=== PATIENT | male | born 1980 | race African-American/Black ===

== ENCOUNTER 2022-06-28 19:11 | Inpatient (IN) | payer OTHER, SELFPAY ==
[2022-06-28] VITALS (9 sets, daily range): BP systolic 120–139; BP diastolic 86–94; PULSE 107–121; RESP 18–36; TEMP 37.9–39.2; O2SAT 97–98
--- NOTE | ~2022-06-28 | XR_ITS ---
Portable chest x-ray Comparison: None Clinical History: Chest pain Findings: There is linear bibasilar scarring or atelectasis. Lungs are otherwise clear. Cardiomedia stinal silhouette is unremarkable. Bones and soft tissues are unremarkable. Impression: Linear bibasilar scarring or atelectasis, otherwise clear lungs. Reviewed, dictated and finalized at [facility]. Impression: Linear bibasilar scarring or atelectasis, otherwise clear lungs.
--- NOTE | ~2022-06-28 | CT_ITS ---
CT of the Abdomen and Pelvis: Indication: Peritonitis Technique: 2.5 mm axial scans were obtained through the abdomen and pelvis following intravenous adm inistration of 100 cc of Omnipaque 350. Dose reduction technique was used on this scan by utilizing a utomated exposure control and iterative reconstruction technique. The dose-length product (DLP) was 5 34.64 mGy-cm. Findings: Scans through the lung bases demonstrate bibasilar linear atelectasis or scarring. There i s a 5 mm lung nodules extreme left lung base (see series 4 image 38). There are innumerable small cysts or biliary hamartomas. The spleen, pancreas, gallbladder, adrenals and kidneys are within normal limits. No evidence of aortic aneurysm. No lymphadenopathy. No bowel obstruction or bowel wall thickening. There is no evidence to suggest acute appendicitis. Images through the pelvis were performed. Urinary bladder unremarkable. Prostate gland and seminal ve sicles are unremarkable. No ascites. Impression: No acute abnormality. 5 mm left basilar pulmonary nodule. According to Fleischner Society criteria, for a low-risk patient no further follow-up required. For a high-risk patient consider 12 month follow-up CT. Innumerable small hepatic cysts or biliary hamartomas. Reviewed, dictated and finalized at location M. Impression: No acute abnormality. 5 mm left basilar pulmonary nodule. According to Fleischner Society criteria, f or a low-risk patient no further follow-up required. For a high-risk patient co nsider 12 month follow-up CT. Innumerable small hepatic cysts or biliary hamartomas.
--- NOTE | ~2022-06-28 | US_ITS ---
EXAMINATION: US abdomen limited DATE: 06/29/2022 17:01 INDICATION: +MURPHYS TECHNIQUE: Multiple grayscale and Doppler ultrasound images of limited portions of the abdomen were o btained. COMPARISON: CT abdomen pelvis 06/28/2022. FINDINGS: Pancreas not visualized. The liver is normal with normal echogenicity and echotexture. Mult iple simple liver cysts. No surface nodularity. Normal hepatopetal flow in the main portal vein. The gallbladder is normal size, with wall thickening to 4 mm, but no pericholecystic fluid or stones. The common bile duct measures mm. There was no sonographic Luis sign. IMPRESSION: Gallbladder wall thickening, a nonspecific finding. Pancreas not visualized. Otherwise unremarkable l imited abdominal ultrasound findings. Reviewed, dictated and finalized at location K. IMPRESSION: Gallbladder wall thickening, a nonspecific finding. Pancreas not visualized. Ot herwise unremarkable limited abdominal ultrasound findings.
--- NOTE | ~2022-06-28 | XR_ITS ---
EXAMINATION: XR lumbar puncture diagnostic DATE: 06/30/2022 13:37 INDICATION: Fever, headache and nuchal rigidity TECHNIQUE: The procedure including the risks and benefits was discussed with the patient. Risks discu ssed included spinal headache, cerebrospinal fluid leak, bleeding, and infection. The patient underst ood the risks and agreed to proceed. A timeout was performed to verify the patient's name, date of , and procedure to be performed. The skin overlying the L3-L4 level was prepped and draped in usual sterile fashion. Subcutaneous 1% lidocaine was used for local anesthesia. A 22 gauge spinal n eedle was advanced under fluoroscopic guidance. The needle was removed and the entry site was cleaned and dressed. There were no immediate complications. A total of 1 fluoroscopic image(s) were obtaine d. The amount of fluoroscopy time used during this procedure was 0.1 minutes. Total DAP was 1.014 Gyc m^2. There were no immediate competitions. Patient was transferred to CT for a previously ordered hea d CT was to be subsequently returned to the floor. FINDINGS: Real-time fluoroscopy demonstrates the needle at the L3-L4 level. Opening pressure was 18.5 cm water. (Normal range is variably defined as 6-20 cm water and up to 25 cm water in obese patients . Pressure >25 cm water is one of the modified Dandy criteria for idiopathic intracranial hypertensio n). 13 mL of clear, colorless fluid was collected in 4 tubes. IMPRESSION: 1. Successful fluoro-guided lumbar puncture. Reviewed, dictated and finalized at location A.
--- NOTE | ~2022-06-28 | MR_ITS ---
EXAMINATION: MR lumbar spine wo/w con DATE: 06/29/2022 13:00 INDICATION: Back pain and fever TECHNIQUE: Magnetic resonance imaging (MRI) of the lumbar spine was performed without and with 17 mL Multihance intravenous contrast. Sequences included sagittal T2-weighted FSE, sagittal T2-weighted FS FSE, and sagittal and axial T1-weighted FSE. Postcontrast sequences included axial T2-weighted FSE, sagittal T1-weighted FSE, and axial and sagittal T1-weighted FS FSE. COMPARISON: None FINDINGS: Alignment is normal. Chronic appearing likely physiologic mild anterior wedging at T12 and minimal at L1. There is mild disc height loss with mild fibrovascular degenerative endplate changes at T11-T12. Additional mild fibrovascular degenerative endplate change on the left anterior aspect of the inferi or endplate of L5. Marrow signal is otherwise normal. Lumbar disc heights are normal. The conus medul harley terminates at L1-L2. There is normal signal in the caudal spinal cord. No abnormally enhancing lesions identified. Paravertebral soft tissues are unremarkable. The following disc levels are specif ically discussed: L1-L2: The disc does not extend beyond the endplate margin. There is minimal bilateral facet joint os teoarthritis. There is no neural foraminal stenosis. There is no central canal stenosis. L2-L3: The disc does not extend beyond the endplate margin. There is mild bilateral facet joint osteo arthritis. There is no neural foraminal stenosis. There is no central canal stenosis. L3-L4: The disc does not extend beyond the endplate margin. There is mild right and minimal left face t joint osteoarthritis. There is minimal bilateral neural foraminal stenosis. There is no central can al stenosis. L4-L5: The disc does not extend beyond the endplate margin. There is mild bilateral facet joint osteo arthritis. There is mild bilateral neural foraminal stenosis. There is no central canal stenosis. L5-S1: Disc is mildly bulging. There is mild bilateral facet joint osteoarthritis. Bilateral pars int erarticularis defects. There is mild left and minimal right neural foraminal stenosis. There is no ce ntral canal stenosis. IMPRESSION: 1. Minimal lumbar spondylosis with bilateral L5 pars interarticularis defects. Reviewed, dictated and finalized at location A.
--- NOTE | ~2022-06-28 | MR_ITS ---
EXAMINATION: MR cervical spine wo/w con DATE: 06/29/2022 13:00 INDICATION: Fever and back pain TECHNIQUE: Magnetic resonance imaging (MRI) of the cervical spine was performed without and with 17 m L Multihance intravenous contrast. Sequences included sagittal T2-weighted FSE, sagittal T2-weighted FS FSE, sagittal T1-weighted FSE, axial T2-weighted FSE, and axial T1-weighted SE. Postcontrast imagi ng were obtained for separate pre and postcontrast lumbar spine MRI which will be dictated separately . Patient however terminated the study prior to obtaining the planned postcontrast imaging of the cer vical thoracic spine. COMPARISON: None FINDINGS: Imaging of the normal cervical lordosis. No spondylolisthesis. Vertebral body heights are normal. Mo derate disc height loss at C5-C6 with associated mild fibrovascular degenerative endplate changes. Ma rrow signal is otherwise normal. Cord signal intensity is normal. The soft tissues are unremarkable. The following disc levels are specifically discussed: C2-C3: The disc does not extend beyond the endplate margin. There is no uncovertebral joint osteoarth ritis. There is mild right and mild to moderate left facet joint osteoarthritis. There is no neural f oraminal stenosis. There is no central canal stenosis. C3-C4: The disc does not extend beyond the endplate margin. There is mild right uncovertebral joint o steoarthritis. There is mild right and mild to moderate left facet joint osteoarthritis. There is no neural foraminal stenosis. There is no central canal stenosis. C4-C5: Small left paracentral disc protrusion. There is mild bilateral uncovertebral joint osteoarthr itis. There is mild bilateral facet joint osteoarthritis. There is mild bilateral neural foraminal st enosis. There is minimal central canal stenosis. C5-C6: Disc is bulging. There is moderate bilateral uncovertebral joint osteoarthritis. There is mild bilateral facet joint osteoarthritis. There is mild bilateral, left greater than right neural forami nal stenosis. There is mild central canal stenosis. C6-C7: The disc does not extend beyond the endplate margin. There is mild bilateral uncovertebral rosy nt osteoarthritis. There is mild bilateral facet joint osteoarthritis. There is no neural foraminal s tenosis. There is no central canal stenosis. C7-T1: The disc does not extend beyond the endplate margin. There is mild left uncovertebral joint os teoarthritis. There is mild bilateral facet joint osteoarthritis. There is mild left neural foraminal stenosis. There is no central canal stenosis. IMPRESSION: 1. Cervical spondylosis moderate at C5-C6 and otherwise mild. Reviewed, dictated and finalized at location A.
--- NOTE | ~2022-06-28 | XR_ITS ---
EXAMINATION: XR chest 2V DATE: 07/01/2022 14:58 INDICATION: Fever TECHNIQUE: PA and lateral views of the chest were obtained. COMPARISON: Chest radiograph dated 06/28/2022 FINDINGS: Persistent linear bandlike opacities in the bilateral lower lung zones, left greater than right and f avor discoid atelectasis or pneumonia. No other airspace opacities, pulmonary edema, pleural effusion or pneumothorax. The cardiomediastinal silhouette is normal. Mild thoracic and lumbar spondylosis wi th chronic mild anterior wedging of a few vertebral bodies at the thoracolumbar junction. IMPRESSION: 1. No significant change in linear bandlike opacities at the bilateral lower lung zones and favor dis coid atelectasis over pneumonia. Reviewed, dictated and finalized at location A. IMPRESSION: 1. No significant change in linear bandlike opacities at the bilateral lower rosy ng zones and favor discoid atelectasis over pneumonia.
--- NOTE | ~2022-06-28 | MR_ITS ---
EXAMINATION: MR thoracic spine wo/w con DATE: 06/29/2022 13:00 INDICATION: Back pain and fever TECHNIQUE: Magnetic resonance imaging (MRI) of the thoracic spine was performed without and with 17 m L Multihance intravenous contrast. Sagittal localizer T1-weighted FSE of the cervicothoracic spine wa s obtained. Sequences included sagittal T2-weighted FSE, sagittal T2-weighted FS FSE, sagittal T1-sarah ghted FSE and axial T1-weighted SE. Postcontrast imaging was obtained for separate pre and postcontra st lumbar spine MRI which will be dictated separately. Patient however terminated the study prior to obtaining the planned postcontrast imaging of the cervical thoracic spine. COMPARISON: None FINDINGS: Alignment is normal. Chronic appearing mild likely physiologic anterior wedging atT11 and T12, minima l atL1. There are Schmorl's nodes along several of the endplates in the lower thoracic spine. Mild di sc height loss [id number] with mild anterior fibrovascular degenerative endplate changes. Marrow signa l is otherwise normal. Additional mild disc height loss at T3-T4 through T6-T7. Mild disc bulge at T1 1-T12 with minimal central canal stenosis. Remaining discs do not extend beyond the endplate margins with no other central canal stenosis. There is normal spinal cord signal. Multilevel mild thoracic fa cet osteoarthritis. No neural foraminal stenosis. Paravertebral soft tissues are unremarkable. IMPRESSION: 1. Mild thoracic spondylosis. Reviewed, dictated and finalized at location A.
--- NOTE | ~2022-06-28 | CT_ITS ---
EXAMINATION: CT brain wo con DATE: 06/30/2022 13:36 INDICATION: Headache TECHNIQUE: Computed tomography (CT) of the head was performed without intravenous contrast. The mA wa s adjusted according to patient size. Iterative reconstruction technique was employed. Exam dose: 60 5.33 mGy-cm total exam DLP. COMPARISON: None FINDINGS: No intracranial mass lesion or hemorrhage or cerebrovascular accident. No midline shift or mass effect. Normal ventricular size. Normal naik-white matter differentiation. No subdural or epidur al hematoma. No fracture or bone destruction of the cranial vault. Probable old blowout fracture of the medial wall of the left orbit. Included paranasal sinuses and mastoid air cells are unremarkable. IMPRESSION: Old blowout fracture medial wall left orbit No significant intracranial abnormality Reviewed, dictated and finalized at Location [facility]. Reviewed, dictated and finalized at location B.
--- NOTE | ~2022-06-28 | CT_ITS ---
EXAMINATION: CT abdomen pelvis w con INDICATION: Elevated liver function tests TECHNIQUE: Computed tomographic images of the abdomen and pelvis were obtained after the administrati on of 100 cc of Omnipaque 350 intravenous contrast. The dose-length product (DLP) was 382.92 mGy-cm. Automated exposure control and iterative reconstruction technique were employed. COMPARISON: 06/28/2022 FINDINGS: There are small pleural effusions. The heart size is normal. There is mild dependent atelec tasis of the lungs. There are innumerable cysts versus biliary hamartomas of the liver which measure up to 1.3 cm in the right hepatic lobe. The spleen, pancreas, gallbladder, and adrenal glands are nor mal. Cysts of the kidneys measure up to 6 mm on the left. No pathologically enlarged abdominal or pel sj lymph nodes are identified. No free intraperitoneal gas or evidence of bowel obstruction. There a re marked distention of the urinary bladder. Liquid stool is present in the colon to the level of the rectum. There is mild lumbar spondylosis. IMPRESSION: 1. No CT correlate for the patient's symptoms. 2. Distended urinary bladder. Reviewed, dictated and finalized at location B.
--- NOTE | 2022-06-28 23:12 | ECG_ITS ---
Measurements Intervals Means Rate: 109 P: 28 LA: 144 QRS: 26 QRSD: 88 T: -2 QT: 324 QTc: 436 Interpretive Statements SINUS TACHYCARDIA BORDERLINE T WAVE ABNORMALITY- INFERIOR LEADS ABNORMAL ECG NO PREVIOUS ECG AVAILABLE FOR COMPARISON Electronically Signed On 06-29-2022 6:48:19 CDT by Griffin Hernandez D.O.
[2022-06-28] MEDS: SODIUM CHLORIDE 0.9% IV 3,000 ML 999 ML IV CONT (23:20)
[2022-06-28] MEDS: HYDROmorphone HCL INJ (*CRX) 1 MG/ML SYR IV PUSH (23:27)
[2022-06-28 23:34] LABS: Basophils Percent Auto 0.2 % (0.2-1.2); Hemoglobin 13.8 g/dL (14.0-18.0); Immature Granulocyte Absolute 0.05 K/mm3 (0.00-0.031); Immature Granulocyte Percent A 0.4 % (0-0.5); Lymphocytes Absolute Auto 0.72 K/mm3 (0.9-3.2); Lymphocytes Percent Auto 5.5 % (18.3-44.2); Mean Corpuscular HGB Conc 32.9 g/dl (32-36); Mean Corpuscular Volume 85.2 fl (80-100); Mean Platelet Volume 9.1 fl (7.4-10.4); Monocytes Absolute Auto 1.7 K/mm3 (0.1-0.6); Monocytes Percent Auto 13.2 % (2.6-8.5); Neutrophils Absolute Auto 10.6 K/mm3 (1.3-6.7); Neutrophils Percent Auto 80.7 % (45.5-73.1); Platelet Count Result 293 k/mm3 (150-375); Red Blood Count 4.93 M/mm3 (4.6-6.20); Red Cell Distribution Width 13.2 % (11.5-14.5); White Blood Count 13.1 K/mm3 (4.5-10.0)
[2022-06-28 23:45] LABS: Alanine Aminotransferase 30 U/L (6-50); Albumin Level 4.1 g/dL (3.5-5.1); Alkaline Phosphatase 99 U/L (38-126); Anion Gap 8 mmol/L (8-16); Aspartate Amino Transferase 23 U/L (17-59); Bilirubin,Total 0.8 mg/dL (0.2-1.3); Blood Urea Nitrogen 20 mg/dL (9-20); Calcium 8.7 mg/dL (8.4-10.2); Carbon Dioxide 30 mmol/L (22-30); Chloride 95 mmol/L (98-107); Estimated CRCL calculation 79 ml/min; Estimated Glomerular Filt Rate > 60; Glucose 139 mg/dL (65-110); INR 1.3; Lactic Acid Reflex 1.6 mmol/L (0.7-2.0); Lipase 29 U/L (23-300); Magnesium 2.5 mg/dL (1.6-2.3); Prothrombin Time 15.7 Seconds (11.1-14.7); Sodium 133 mmol/L (137-145)
[2022-06-28 23:46] LABS: Partial Thromboplastin Time 26.9 SECONDS (22.3-36.8)
--- NOTE | 2022-06-28 23:47 | ED.GENADULT ---
HPI - General Adult General Chief complaint: Unspecified Stated complaint: pain all over Time Seen by Provider: 06/28/22 22:54 History of Present Illness HPI narrative: this is a 41-year-old male presenting ED with chief complaint of abdominal and back pain. Patient says that starting 4 days ago he had abdominal pain. He has seen an outside hospital and was discharged with symptomatic treatment. Since then it has gotten progressively worse. The pain started in the epigastric area of his stomach, stabbing pain that is constant and 10/10 in intensity. Says it is now radiating to his back. Patient has not had a bowel movement for 5 days. He is still passing gas. He is having nausea and vomiting. No history of small-bowel obstruction, hernias or surgery on his abdomen. He does take Aleve every several days for pain. he denies IV drug abuse or immunocompromised. Related Data Allergies Allergy/AdvReac Type Severity Reaction Status Date / Time No Known Allergies Allergy Verified 06/28/22 23:17 Exam Narrative: APPEARANCE: patient appears to be in severe pain Head: atraumatic. EYES: EOMI, NOSE: Atraumatic Back: midline lumbar tenderness RESPIRATORY: No increased rate of breathing clear to auscultation CARDIOVASCULAR: tachycardic ABDOMINAL: abdomen is rigid with diffuse tenderness and involuntary guarding MUSCULOSKELETAl: No obvious deformities NEURO: Alert. Moving 4/4 extremities SKIN:: warm to touch PSYCHIATRIC: severe pain Course Vital Signs Vital signs: Vital Signs Temperature 100.2 F H 06/28/22 19:20 Pulse Rate 120 H 06/28/22 19:20 Respiratory Rate 18 06/28/22 19:20 Blood Pressure 136/92 H 06/28/22 19:20 Pulse Oximetry 98 06/28/22 19:20 Temperature 102.6 F H 06/28/22 22:22 Pulse Rate 121 H 06/28/22 22:22 Respiratory Rate 20 06/28/22 22:22 Blood Pressure 120/91 H 06/28/22 22:22 Pulse Oximetry 97 06/28/22 22:22 Procedures EJ/Peripheral Line Arm L: Skin Cleansed in Sterile Fashion: Yes Ultrasound Guided: No Size (gauge): 18 IV Secured and Dressing Applied: Yes Patient Tolerated Procedure: well Additional Comments: Peripheral IV started by emergently Arm R: Skin Cleansed in Sterile Fashion: Yes Size (gauge): 18 IV Secured and Dressing Applied: Yes Patient Tolerated Procedure: well Additional Comments: peripheral IV started by MD emergently Medical Decision Making MDM Narrative Medical decision making narrative: -Presentation: this is a 41-year-old male presenting to ED with abdominal pain and back pain. Patient appears unwell, febrile and tachycardic. abdominal guarding. Fluid resuscitation was started. Patient was started on pip/tazo. POC RUQ US showed a normal GB. Emergent CT abdomen pelvis was ordered. -DDX includes but is not limited to: small-bowel obstruction, cholecystitis, perforated viscus, appendicitis, diskitis/osteomyelitis -Co-morbidities complicating care: none -Social determinants of health: patient works for a [employer]. Lives with his brother Graham -External Chart Review: none -Hx from independent Sources: Graham at bedside -Discussion of Management/Consultants: Mahamed-hospitalist -Independent interpretation of studies: White blood cell count is 13.1. Metabolic panel shows mild dehydration. Lactic is normal. Viral swabs are negative. Chest x-ray shows no acute cardiopulmonary process. Independent EKG interpretation: Rhythm [sinus], Rate [109], [place] -[normal], [place] -[normal], QRS [narrow], QTC [normal], T waves -[negative for concerning inversions], ST Segments - [Negative for concerning elevations] Final interpretations: [Normal Sinus Rhythm] CT abdomen pelvis was interpreted by [facility] showed diffuse hepatic cysts and subcentimeter size renal cysts but no obstruction perforation/appendicitis/cholecystitis. The patient's ot
[2022-06-28] MEDS: ONDANSETRON INJ 4 MG/2 ML VIAL 8 MG IV PUSH (23:50)
[2022-06-29] VITALS (63 sets, daily range): BP systolic 107–145; BP diastolic 77–110; PULSE 92–105; RESP 14–27; TEMP 37.2–37.8; O2SAT 96–99; BMI 29.1
[2022-06-29] MEDS: PIPERACILLN/TAZ 3.375GM/NS50ML 3.375 GM/50 ML BAG IVPB ×3 (00:13→17:33)
[2022-06-29 01:00] LABS: Influenza A QL RT-PCR Negative (Negative); Influenza B QL RT-PCR Negative (Negative); SARS-CoV-2 RNA PCR Negative
[2022-06-29 02:55] LABS: CRP 6.8 mg/dL (<1.0)
[2022-06-29 03:25] LABS: Erythrocyte Sedimentation Rate 17 mm/hr (0-20)
[2022-06-29] MEDS: HYDROmorphone HCL INJ (*CRX) 1 MG/ML SYR 0.5 MG IV PUSH ×4 (03:38→21:44)
[2022-06-29] MEDS: LACTATED RINGERS 1,000 ML 125 ML IV CONT ×3 (04:24→21:43)
[2022-06-29 05:43] LABS: Procalcitonin 0.7 ng/mL
[2022-06-29] MEDS: FAMOTIDINE 20 MG/2 ML VIAL IV PUSH ×2 (07:48→21:46)
[2022-06-29] MEDS: PANTOPRAZOLE SODIUM IV 40 MG VIAL IV PUSH (09:28)
[2022-06-29 10:53] LABS: Basophils Percent Auto 0.3 % (0.2-1.2); Eosinophils Percent Auto 0.2 % (0-4.4); Hematocrit 37.4 % (42.0-52.0); Immature Granulocyte Absolute 0.04 K/mm3 (0.00-0.031); Immature Granulocyte Percent A 0.3 % (0-0.5); Lymphocytes Absolute Auto 0.77 K/mm3 (0.9-3.2); Lymphocytes Percent Auto 6.4 % (18.3-44.2); Mean Corpuscular HGB Conc 32.1 g/dl (32-36); Mean Corpuscular Volume 87.4 fl (80-100); Mean Platelet Volume 8.9 fl (7.4-10.4); Monocytes Absolute Auto 1.4 K/mm3 (0.1-0.6); Monocytes Percent Auto 11.6 % (2.6-8.5); Neutrophils Absolute Auto 9.8 K/mm3 (1.3-6.7); Neutrophils Percent Auto 81.2 % (45.5-73.1); Platelet Count Result 242 k/mm3 (150-375); Red Blood Count 4.28 M/mm3 (4.6-6.20); Red Cell Distribution Width 13.4 % (11.5-14.5); White Blood Count 12.1 K/mm3 (4.5-10.0)
[2022-06-29 10:59] LABS: Chloride 101 mmol/L (98-107)
[2022-06-29 11:06] LABS: Alanine Aminotransferase 24 U/L (6-50); Albumin Level 3.3 g/dL (3.5-5.1); Alkaline Phosphatase 76 U/L (38-126); Anion Gap 4 mmol/L (8-16); Aspartate Amino Transferase 19 U/L (17-59); Bilirubin,Total 0.9 mg/dL (0.2-1.3); Blood Urea Nitrogen 16 mg/dL (9-20); Calcium 7.6 mg/dL (8.4-10.2); Carbon Dioxide 28 mmol/L (22-30); Estimated CRCL calculation 110 ml/min; Estimated Glomerular Filt Rate > 60; Glucose 128 mg/dL (65-110); Potassium 3.9 mmol/L (3.4-5.0); Sodium 133 mmol/L (137-145)
--- NOTE | 2022-06-29 11:51 | PC.NURSE ---
Pt off floor to MRI - will be admitted to room Report called to Bere on . Will send belongings to floor (jejuan antonio, snkwamekerrashel, gatjacky bottle, sweatshirt, iphone).
--- NOTE | 2022-06-29 13:28 | ADMGEN ---
This patient, Henrique Ayala, was admitted to 2 Medical Room 260-. Patient/family oriented to hospital policies and general routines including ID bracelet, bed and alarms, visiting hours, pain management, procedures, bathroom and other care routines, personal items, smoking policy, room service/diet, and visiting hours. Information on how to activate the Rapid Response Team has been discussed. Patient/Family are encouraged to report perceived risks to care and to ask questions if they do not understand what they are told or what they should do.
--- NOTE | 2022-06-29 16:17 | PM.IMHP ---
H&P: HPI History of Present Illness Date/Time: 06/29/22 16:17 Chief Complaint: This is a 41-year-old male with no a significant past medical history and not on any current medications at presented to the ED due to abdominal pain that started between 5 and 6 days ago. patient states that he has had loss of appetite, vomiting associated with eating. When he describes his vomiting he describes it as the food being stuck in his throat and coming back up. States that the food looks like chewed up food without much liquid in it. It seems to me that he is describing more regurgitation rather than a vomiting. Patient does have some nausea, body aches, chills, and epigastric pain that has worsened. Patient denies chest pain, headache, dizziness, melena, hematochezia. Patient has had constipation over the past 5 days. In the ED patient was found to have a fever of 100.2, elevated white count of 13.1, sodium of 133, CRP 6.8. Lipase normal. CT abdomen pelvis no acute findings, chest ray no acute cardiopulmonary process. During physical exam patient did have positive Luis sign As well as concerns for esophageal stricture thus GI consulted. Right upper quadrant ultrasound ordered. While in the ED patient did have midline spinal tenderness and thoracic, lumbar and cervical spine MRI ordered all which revealed spondylosis. Patient being admitted to observation for further workup and evaluation. Review of Systems Review of Systems: All systems reviewed & are unremarkable except as noted in HPI and below PMFSH Social History Social History (Updated 06/29/22 @ 16:30 by Zonia Prince PA-C) Social History: Patient lives with his 2 brothers and a home. 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 Patient denies tobacco use and drug use. He admits to occasional drinking on the holidays. Smoking status: Never smoker Alcohol intake: never Substance use: never Substance use type: does not use Lack of Transportation: No Lack of Food: Never True Current Housing: I Have Housing Concerned About Future Housing: No Difficulty Paying Gas/Electric Bills: No Difficulty Paying for Meds: No Currently Unemployed: No Education: High School Diploma/GED Difficulty w/ Childcare or Family Care: No Spiritual care concerns: No Meds Home Medications and Allergies Allergies Allergy/AdvReac Type Severity Reaction Status Date / Time No Known Allergies Allergy Verified 06/29/22 11:24 Vital Signs Vital Signs - 24 hr 06/28/22 19:20 06/28/22 22:22 06/28/22 22:33 Temperature 100.2 F H 102.6 F H Pulse Rate 120 H 121 H Respiratory Rate 18 20 36 H Blood Pressure 136/92 H 120/91 H Pulse Oximetry 98 97 Oxygen Delivery 06/28/22 22:34 06/28/22 22:56 06/28/22 23:00 Temperature Pulse Rate 108 H 110 H 111 H Respiratory Rate 22 H 28 H Blood Pressure 135/94 H 139/86 Pulse Oximetry Oxygen Delivery 06/28/22 23:01 06/28/22 23:16 06/28/22 23:46 Temperature Pulse Rate 112 H 107 H 108 H Respiratory Rate 27 H 19 Blood Pressure Pulse Oximetry Oxygen Delivery 06/29/22 00:00 06/29/22 00:02 06/29/22 00:03 Temperature Pulse Rate 103 H 104 H 102 H Respiratory Rate 20 27 H 19 Blood Pressure 130/79 130/79 Pulse Oximetry Oxygen Delivery 06/29/22 00:15 06/29/22 00:16 06/29/22 00:57 Temperature Pulse Rate 103 H 102 H 98 Respiratory Rate 21 H 19 19 Blood Pressure 122/86 Pulse Oximetry Oxygen Delivery 06/29/22 01:00 06/29/22 01:01 06/29/22 01:15 Temperature Pulse Rate 96 100 96 Respiratory Rate 19 20 18 Blood Pressure 117/78 Pulse Oximetry Oxygen Delivery 06/29/22 01:30 06/29/22 01:31 06/29/22 01:47 Temperature Pulse Rate 96 98 96 Respiratory Rate 22 H 22 H 22 H Blood Pressure 116/79 Pulse Oximetry Oxygen Delivery 06/29/22 02:03 06/29/22 02:16 06/29/22 02:30 Temperature Pulse Rate 97 93 92 Respiratory Rate
[2022-06-29] MEDS: HYDROcodone/acetaminophen (*CRX) 5-325 MG TABLET 1 TAB PO (17:09)
[2022-06-29 18:09] LABS: Appearance Urine Clear (Clear); Bacteria Urine None Seen /hpf; Bilirubin Urine Negative (Negative); Blood Urine 2+ (Negative); Color Urine Yellow (Yellow); Glucose Urine UA Negative (Negative); Ketones Urine 1+ mg/dL (Negative); Leukocyte Esterase Ur Negative LEU/UL (Negative); Nitrate Urine Negative (Negative); Non Pathogenic Casts 0-2; Protein Urine 1+ mg/dL (Negative); RBC Urine 21-50 /hpf (0-2); Specific Grav Ur 1.029 (1.001-1.035); Squamous Epithelial Cell Urine None seen /hpf (Few); WBC Urine 0-5 /hpf
[2022-06-29 18:22] LABS: Add Urine Microscopic? YES
[2022-06-30] VITALS (12 sets, daily range): BP systolic 114–128; BP diastolic 74–100; PULSE 89–111; RESP 16–24; TEMP 36.5–37.7; O2SAT 97–100
[2022-06-30] MEDS: PIPERACILLN/TAZ 3.375GM/NS50ML 3.375 GM/50 ML BAG IVPB ×2 (00:46→06:02)
[2022-06-30] MEDS: HYDROcodone/acetaminophen (*CRX) 5-325 MG TABLET 1 TAB PO (00:47)
[2022-06-30] MEDS: HYDROmorphone HCL INJ (*CRX) 1 MG/ML SYR 0.5 MG IV PUSH ×4 (04:20→18:19)
[2022-06-30 06:11] LABS: Estimated CRCL calculation 97 ml/min; Estimated Glomerular Filt Rate > 60
[2022-06-30] MEDS: FAMOTIDINE 20 MG/2 ML VIAL IV PUSH (07:46)
[2022-06-30] MEDS: PANTOPRAZOLE SODIUM IV 40 MG VIAL IV PUSH ×2 (07:46→20:06)
[2022-06-30] MEDS: LACTATED RINGERS 1,000 ML 125 ML IV CONT (10:28)
[2022-06-30] MEDS: CYCLOBENZAPRINE HCL 10 MG TABLET PO ×2 (11:30→21:50)
--- NOTE | 2022-06-30 11:32 | PM.IMPN ---
Progress Note: A&P Assessment and Plan (1) Fever: Qualifiers: Fever type: due to other condition Qualified Code(s): R50.81 - Fever presenting with conditions classified elsewhere Code(s): R50.9 - Fever, unspecified Status: Acute Assessment and Plan: patient presented with complaints of acute cervical, thoracic, lumbar back pain, left arm and leg numbness and tingling, as well as a severe headaches worse with head turning or position changes. patient had fever of 102 in the ED and positive nuchal rigidity noted on exam. patient appears anxious and has increased pain with leg straightening. Concern for meningitis (bacterial, viral, aseptic)- continue vancomycin, stop Zosyn and changed to 3rd generation cephalosporin Rocephin 2 mg IV q.12 hours add acyclovir 10 milligrams/kilogram IV q.[address] head negative for acute intracranial abnormality Check lumbar puncture and send CSF for viral serology, Gram stain, bacterial culture and cytology Consulted Neuro for assistance and evaluation. Appreciate recommendations. Check RPR and HIV 4th gen screening continue analgesics and antipyretics monitor neuro status closely (2) Acute back pain: Qualifiers: Back pain location: back pain in unspecified location Back pain laterality: bilateral Qualified Code(s): M54.9 - Dorsalgia, unspecified Code(s): M54.9 - Dorsalgia, unspecified Status: Acute Assessment and Plan: presume secondary to above. MRI of cervical, thoracic and lumbar spine revealing spondylosis P.r.n. analgesics and muscle relaxants (3) Abdominal pain: Qualifiers: Abdominal location: generalized Qualified Code(s): R10.84 - Generalized abdominal pain Code(s): R10.9 - Unspecified abdominal pain Status: Acute Assessment and Plan: Patient with abdominal pain that started 06/23/2022. Patient has had regurgitation with his meals and persistent epigastric pain. CT abdomen pelvis revealing hepatic cysts or biliary hematomas Right upper quadrant ultrasound ordered Lipase within normal limits UA without nitrates, leukocytes, and bacteria Preliminary blood cultures no growth today Suspect this is secondary to acute infection (4) Hepatic cyst: Code(s): K76.89 - Other specified diseases of liver Status: Chronic Assessment and Plan: CT abdomen pelvis revealing innumerable small hepatic cysts or biliary hematomas. Incidental finding. LFTs within normal limits. Plan CODE STATUS: FULL CODE Disposition: from home. No discharge needs identified at this time. Diet: NPO for LP Antibiotic day: Vancomycin day 2, Rocephin day 1, Acyclovir day 1 Time Spent With Patient Time with patient: Greater than 35 minutes Subjective Date/time seen: 06/30/22 11:32 Interval history: This is a 41-year-old male with no a significant past medical history and not on any current medications at presented to the ED due to abdominal pain that started between 5 and 6 days ago. patient states that he has had loss of appetite, vomiting associated with eating. Patient found lying in bed. He is restless with frequent bilateral leg movements and complains of severe back pain throughout, headache worse with position changes and worse on the right side. He has generalized pain to his abdomen, upper extremities, and lower extremities. He reports no nausea or emesis at this time. He does complain of indigestion. he denies presence of rash, scan or genital lesions. He that he has never had chickenpox infection but believes he has received all childhood vaccinations. He is unclear of he receive meningitis vaccinations in the past. His symptoms started last and he was seen at [facility] and given muscle relaxers that he reports initially helped his symptoms. analgesics a given this hospital stay have been ineffective, per patient. He reports no acute injury to his back
--- NOTE | 2022-06-30 11:40 | WPDNEURCNPN ---
Assessment and Plan Assessment and plan Plan considering the clinical status patient has already been started on antibiotics antiviral in addition he will undergo spinal fluid studies further delineation and further adjustment will be made according Consult date: 06/30/22 HPI: Henrique Ayala is a 41 year old male admitted to the hospital through the emergency room for the complaints of generalized pain including the abdominal and lower back of 4 days duration and with the information that he had been another hospital from where he was discharged but the pain became progressively worse particularly localized in the epigastric area with radiation to his back along with nausea and vomiting he is not allergic to any medication he gave no history of drug abuse or being immunocompromised. Initial examination in the Emergency Room otherwise was nonfocal, his vital signs were normal except the pulse rate was 120 temp was 100.2? the blood pressure was 120/91 routine lab studies were negative, antibody screen for the blood was negative and he was also negative for influenza A,B,and covid, radiological investigations included CT of the abdomen and pelvis which was generally unremarkable MRI of the lumbar spine was consistent with minimal lumbar spondylosis with bilateral L5 pars interarticularis defects thoracic spine MRI was negative except mild spondylosis and cervical spine MRI was again consistent with spondylosis and moderate at C5 and C6 otherwise mild also 2 blood cultures up until now negative Review of Systems Review of Systems: All systems reviewed & are unremarkable except as noted in HPI and below PMFSH Social History Social History (Updated 06/29/22 @ 16:30 by Zonia Prince PA-C) Social History: Patient lives with his 2 brothers and a home. 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 Patient denies tobacco use and drug use. He admits to occasional drinking on the holidays. Smoking status: Never smoker Alcohol intake: never Substance use: never Substance use type: does not use Lack of Transportation: No Lack of Food: Never True Current Housing: I Have Housing Concerned About Future Housing: No Difficulty Paying Gas/Electric Bills: No Difficulty Paying for Meds: No Currently Unemployed: No Education: High School Diploma/GED Difficulty w/ Childcare or Family Care: No Spiritual care concerns: No Meds Home Medications and Allergies Home Medications Medication Instructions Recorded Confirmed Type No Home Medications 06/29/22 06/29/22 History Allergies Allergy/AdvReac Type Severity Reaction Status Date / Time No Known Allergies Allergy Verified 06/29/22 11:24 Vital Signs Vital Signs - 24 hr 06/29/22 13:10 06/29/22 14:39 06/29/22 16:00 Temperature 37.8 C H Pulse Rate 103 H 99 Respiratory Rate 20 Blood Pressure 145/82 H Pulse Oximetry 99 Oxygen Delivery Room Air 06/29/22 21:03 06/29/22 20:00 06/29/22 20:00 Temperature 37.2 C Pulse Rate 100 105 H Respiratory Rate 20 Blood Pressure 138/85 Pulse Oximetry 96 Oxygen Delivery Room Air 06/30/22 00:00 06/30/22 04:14 06/30/22 04:00 Temperature 36.5 C Pulse Rate 106 H 106 H 103 H Respiratory Rate 20 Blood Pressure 119/80 Pulse Oximetry 100 Oxygen Delivery 06/30/22 08:00 Temperature Pulse Rate 104 H Respiratory Rate Blood Pressure Pulse Oximetry Oxygen Delivery Exam Narrative: We will him to be awake alert button in distress ,head normocephalic ear nose throat examination normal, neck supple heart regular with no murmur, lungs clear to auscultation abdomen is soft neuro examination revealed him to be awak but in distress head normocephalic ear nose throat exam normal heart regular lungs clear abdomen soft neuro examination revealed him to be able to relate to the physician able to follow the instruction able to move all 4 extremities reflexes symmetric and plant
[2022-06-30 11:52] LABS: Basophils Percent Auto 0.2 % (0.2-1.2); Eosinophils Absolute Auto 0.1 K/mm3 (0-0.3); Eosinophils Percent Auto 0.7 % (0-4.4); Hematocrit 35.7 % (42.0-52.0); Hemoglobin 11.8 g/dL (14.0-18.0); Immature Granulocyte Absolute 0.07 K/mm3 (0.00-0.031); Immature Granulocyte Percent A 0.5 % (0-0.5); Lymphocytes Absolute Auto 1.16 K/mm3 (0.9-3.2); Lymphocytes Percent Auto 8.8 % (18.3-44.2); Mean Corpuscular HGB Conc 33.1 g/dl (32-36); Mean Corpuscular Hemoglobin 28.2 pg (26-34); Mean Corpuscular Volume 85.2 fl (80-100); Mean Platelet Volume 8.8 fl (7.4-10.4); Monocytes Absolute Auto 1.5 K/mm3 (0.1-0.6); Monocytes Percent Auto 11.5 % (2.6-8.5); Neutrophils Absolute Auto 10.3 K/mm3 (1.3-6.7); Neutrophils Percent Auto 78.3 % (45.5-73.1); Platelet Count Result 258 k/mm3 (150-375); Red Blood Count 4.19 M/mm3 (4.6-6.20); Red Cell Distribution Width 13.6 % (11.5-14.5); White Blood Count 13.1 K/mm3 (4.5-10.0)
[2022-06-30 12:16] LABS: Albumin Level 3.2 g/dL (3.5-5.1); Bilirubin,Total 0.8 mg/dL (0.2-1.3); Carbon Dioxide 30 mmol/L (22-30); Chloride 95 mmol/L (98-107); Estimated CRCL calculation 97 ml/min; Estimated Glomerular Filt Rate > 60
[2022-06-30] MEDS: cefTRIAXone 2 GM/NS 100 ML 2 GM/100 ML BAG IVPB ×2 (12:18→20:07)
[2022-06-30 12:30] LABS: Alanine Aminotransferase 36 U/L (6-50); Alkaline Phosphatase 75 U/L (38-126); Anion Gap 5 mmol/L (8-16); Aspartate Amino Transferase 34 U/L (17-59); Blood Urea Nitrogen 14 mg/dL (9-20); CRP 13.3 mg/dL (<1.0); Calcium 7.7 mg/dL (8.4-10.2); Glucose 121 mg/dL (65-110); Potassium 3.7 mmol/L (3.4-5.0); Sodium 130 mmol/L (137-145)
[2022-06-30 13:08] LABS: HIV 1/2 Ab P24 Ag Result Negative (Negative)
--- NOTE | 2022-06-30 13:26 | WPDNEURCNPN ---
Assessment and Plan Assessment and plan (1) Fever: Code(s): R50.9 - Fever, unspecified Status: Acute (2) Meningitis: Code(s): G03.9 - Meningitis, unspecified Status: Acute Plan patient already has been started on antibiotics and antiviral spinal tap is being done for further adjustment in therapy will be made accordingly in the meantime treatment to be continued as such Consult date: 06/30/22 HPI: Henrique Ayala is a 41 year old male [facility] Social History Social History (Updated 06/29/22 @ 16:30 by Zonia Prince PA-C) Social History: Patient lives with his 2 brothers and a home. 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 Patient denies tobacco use and drug use. He admits to occasional drinking on the holidays. Smoking status: Never smoker Alcohol intake: never Substance use: never Substance use type: does not use Lack of Transportation: No Lack of Food: Never True Current Housing: I Have Housing Concerned About Future Housing: No Difficulty Paying Gas/Electric Bills: No Difficulty Paying for Meds: No Currently Unemployed: No Education: High School Diploma/GED Difficulty w/ Childcare or Family Care: No Spiritual care concerns: No Meds Home Medications and Allergies Home Medications Medication Instructions Recorded Confirmed Type No Home Medications 06/29/22 06/29/22 History Allergies Allergy/AdvReac Type Severity Reaction Status Date / Time No Known Allergies Allergy Verified 06/29/22 11:24 Vital Signs Vital Signs - 24 hr 06/29/22 14:39 06/29/22 16:00 06/29/22 21:03 Temperature 37.2 C Pulse Rate 99 100 Respiratory Rate 20 Blood Pressure 138/85 Pulse Oximetry 96 Oxygen Delivery Room Air 06/29/22 20:00 06/29/22 20:00 06/30/22 00:00 Temperature Pulse Rate 105 H 106 H Respiratory Rate Blood Pressure Pulse Oximetry Oxygen Delivery Room Air 06/30/22 04:14 06/30/22 04:00 06/30/22 08:00 Temperature 36.5 C Pulse Rate 106 H 103 H 104 H Respiratory Rate 20 Blood Pressure 119/80 Pulse Oximetry 100 Oxygen Delivery Results Labs 06/30/22 11:38 06/30/22 11:38 Labs: Short CBC 06/30/22 Range/Units 11:38 WBC 13.1 H (4.5-10.0) K/mm3 Hgb 11.8 L (14.0-18.0) g/dL Hct 35.7 L (42.0-52.0) % Plt Count 258 (150-375) k/mm3 BMP 06/30/22 06/30/22 05:23 11:38 Sodium 130 L Potassium 3.7 Chloride 95 L Carbon Dioxide 30 BUN 14 Creatinine 0.80 0.80 Glucose 121 H Calcium 7.7 L Liver Function 06/30/22 Range/Units 11:38 Total Bilirubin 0.8 (0.2-1.3) mg/dL AST 34 (17-59) U/L ALT 36 (6-50) U/L Alkaline Phosphatase 75 (38-126) U/L Albumin 3.2 L (3.5-5.1) g/dL Urine 06/29/22 Range/Units 17:57 Urine Color Yellow (Yellow) Urine Appearance Clear (Clear) Urine pH 6.0 (5.0-9.0) Ur Specific [place] 1.029 (1.001-1.035) Urine Protein 1+ H (Negative) mg/dL Urine Glucose (UA) Negative (Negative) mg/dL [facility] Consult Billing Inpatient Consult Inpatient Consults: [id number] Consult Moderate
[2022-06-30 13:47] LABS: Glucose CSF 80 mg/dL (40-70); Total Protein CSF 47 mg/dL (12-60)
[2022-06-30] MEDS: ACYCLOVIR SODIUM IVPB 800 MG in DEXTROSE 5% IN WATER 250 ML 266 MG IVPB ×2 (13:50→21:47)
[2022-06-30 14:31] LABS: Appearance CSF Clear (Clear); CSF source CSF; Color CSF Colorless (Colorless)
[2022-06-30 14:32] LABS: Lymphocytes CSF 75 % (40-80); Monocytes CSF 25 % (15-45)
[2022-06-30 14:33] LABS: Nucleated Cell CSF 1 /uL (0-5); Red Blood Cell CSF 0 (0-2)
[2022-06-30 20:28] LABS: Vancomycin Trough 5.8 ug/mL (10.0-20.0)
[2022-07-01] VITALS (10 sets, daily range): BP systolic 116–144; BP diastolic 66–89; PULSE 99–125; RESP 14–18; TEMP 37–38.1; O2SAT 97–98
[2022-07-01] MEDS: ACYCLOVIR SODIUM IVPB 800 MG in DEXTROSE 5% IN WATER 250 ML 266 MG IVPB ×3 (05:01→21:19)
[2022-07-01 05:52] LABS: Basophils Percent Auto 0.1 % (0.2-1.2); Eosinophils Absolute Auto 0.1 K/mm3 (0-0.3); Eosinophils Percent Auto 0.4 % (0-4.4); Hemoglobin 11.6 g/dL (14.0-18.0); Immature Granulocyte Absolute 0.13 K/mm3 (0.00-0.031); Lymphocytes Absolute Auto 1.22 K/mm3 (0.9-3.2); Mean Corpuscular HGB Conc 33.1 g/dl (32-36); Mean Corpuscular Hemoglobin 27.1 pg (26-34); Mean Corpuscular Volume 81.8 fl (80-100); Mean Platelet Volume 9.2 fl (7.4-10.4); Monocytes Absolute Auto 1.8 K/mm3 (0.1-0.6); Monocytes Percent Auto 13.2 % (2.6-8.5); Neutrophils Absolute Auto 10.3 K/mm3 (1.3-6.7); Neutrophils Percent Auto 76.3 % (45.5-73.1); Platelet Count Result 295 k/mm3 (150-375); Red Blood Count 4.28 M/mm3 (4.6-6.20); Red Cell Distribution Width 13.4 % (11.5-14.5); White Blood Count 13.5 K/mm3 (4.5-10.0)
[2022-07-01 06:12] LABS: Alanine Aminotransferase 39 U/L (6-50); Albumin Level 3.2 g/dL (3.5-5.1); Alkaline Phosphatase 85 U/L (38-126); Anion Gap 7 mmol/L (8-16); Aspartate Amino Transferase 28 U/L (17-59); Bilirubin,Total 0.8 mg/dL (0.2-1.3); Blood Urea Nitrogen 10 mg/dL (9-20); Calcium 7.9 mg/dL (8.4-10.2); Carbon Dioxide 28 mmol/L (22-30); Chloride 95 mmol/L (98-107); Estimated CRCL calculation 97 ml/min; Estimated Glomerular Filt Rate > 60; Glucose 137 mg/dL (65-110); Potassium 3.7 mmol/L (3.4-5.0); Sodium 130 mmol/L (137-145)
--- NOTE | 2022-07-01 08:07 | P.PNIM_ITS ---
Progress Note: A&P Assessment and Plan (1) Meningitis: Code(s): G03.9 - Meningitis, unspecified Status: Acute Assessment and Plan: patient presented with complaints of acute cervical, thoracic, lumbar back pancho n, left arm and leg numbness and tingling, as well as a severe headaches worse with head turning or position changes. patient had fever of 102 in the ED and positive nuchal rigidity noted on exam. patient appears anxious and has increased pain with leg straightening. * Concern for meningitis (bacterial, viral, aseptic)- continue vancomycin, stop Zosyn and changed to 3rd generation cephalosporin Rocephin 2 mg IV q.12 hours add acyclovir 10 milligrams/kilogram IV q.8 hours. * CT head negative for acute intracranial abnormality * 06/30 lumbar puncture. CSF viral serology pending (lyme, HSV, West Nile, cryptococcus, EBV and VDRL), CSF glucose 80 (high), Gram stain without organisms noted, bacterial culture pending and cytology 75% lymphocytes, 25% monocytes, 1/uL neucleated cells * Consulted Neuro for assistance and evaluation. Appreciate recommendations. * RPR pending and HIV 4th gen negative * continue analgesics and antipyretics * monitor neuro status closely (2) Fever: Qualifiers: Fever type: due to other condition Qualified Code(s): R50.81 - Fever presenting with conditions classified elsewhere Code(s): R50.9 - Fever, unspecified Status: Acute Assessment and Plan: patient presented with complaints of acute cervical, thoracic, lumbar back pain, left arm and leg numbness and tingling, as well as a severe headaches worse with head turning or position changes. patient had fever of 102 in the ED and positive nuchal rigidity noted on exam. patient appears anxious and has increased pain with leg straightening. * Concern for meningitis (bacterial, viral, aseptic)- continue vancomycin, stop Zosyn and changed to 3rd generation cephalosporin Rocephin 2 mg IV q.12 hours add acyclovir 10 milligrams/kilogram IV q.8 hours. * CT head negative for acute intracranial abnormality * Check lumbar puncture and send CSF for viral serology, Gram stain, bacterial culture and cytology * Consulted Neuro for assistance and evaluation. Appreciate recommendations. * Check RPR and HIV 4th gen screening * continue analgesics and antipyretics * monitor neuro status closely * 07/01 low grade fever 100F yesterday and today. Repeat Chest x-ray and UA. (3) Acute back pain: Qualifiers: Back pain laterality: bilateral Back pain location: back pain in unspecified location Qualified Code(s): M54.9 - Dorsalgia, unspecified Code(s): M54.9 - Dorsalgia, unspecified Status: Acute Assessment and Plan: presume secondary to above. MRI of cervical, thoracic and lumbar spine revealing spondylosis P.r.n. analgesics and muscle relaxants (4) Abdominal pain: Qualifiers: Abdominal location: generalized Qualified Code(s): R10.84 - Generalized abdominal pain Code(s): R10.9 - Unspecified abdominal pain Status: Acute Assessment and Plan: Patient with abdominal pain that started 06/23/2022. Patient has had regurgitation with his meals and persistent epigastric pain. * CT abdomen pelvis revealing hepatic cysts or biliary hematomas * Right upper quadrant ultrasound ordered * Lipase within normal limits * UA without nitrates, leukocytes, and bacteria * Preliminary blood cultures no growth today * Suspect this is secondary to acute infection as patient has generalized pain on assessment suggesting myalgias. (5) Hepatic cyst: Code(s)
--- NOTE | 2022-07-01 08:07 | PM.IMPN ---
Progress Note: A&P Assessment and Plan (1) Meningitis: Code(s): G03.9 - Meningitis, unspecified Status: Acute Assessment and Plan: patient presented with complaints of acute cervical, thoracic, lumbar back pain, left arm and leg numbness and tingling, as well as a severe headaches worse with head turning or position changes. patient had fever of 102 in the ED and positive nuchal rigidity noted on exam. patient appears anxious and has increased pain with leg straightening. Concern for meningitis (bacterial, viral, aseptic)- continue vancomycin, stop Zosyn and changed to 3rd generation cephalosporin Rocephin 2 mg IV q.12 hours add acyclovir 10 milligrams/kilogram IV q.[address] head negative for acute intracranial abnormality 06/30 lumbar puncture. CSF viral serology pending (lyme, HSV, West Nile, cryptococcus, EBV and VDRL), CSF glucose 80 (high), Gram stain without organisms noted, bacterial culture pending and cytology 75% lymphocytes, 25% monocytes, 1/uL neucleated cells Consulted Neuro for assistance and evaluation. Appreciate recommendations. RPR pending and HIV 4th gen negative continue analgesics and antipyretics monitor neuro status closely (2) Fever: Qualifiers: Fever type: due to other condition Qualified Code(s): R50.81 - Fever presenting with conditions classified elsewhere Code(s): R50.9 - Fever, unspecified Status: Acute Assessment and Plan: patient presented with complaints of acute cervical, thoracic, lumbar back pain, left arm and leg numbness and tingling, as well as a severe headaches worse with head turning or position changes. patient had fever of 102 in the ED and positive nuchal rigidity noted on exam. patient appears anxious and has increased pain with leg straightening. Concern for meningitis (bacterial, viral, aseptic)- continue vancomycin, stop Zosyn and changed to 3rd generation cephalosporin Rocephin 2 mg IV q.12 hours add acyclovir 10 milligrams/kilogram IV q.[address] head negative for acute intracranial abnormality Check lumbar puncture and send CSF for viral serology, Gram stain, bacterial culture and cytology Consulted Neuro for assistance and evaluation. Appreciate recommendations. Check RPR and HIV 4th gen screening continue analgesics and antipyretics monitor neuro status closely 07/01 low grade fever 100F yesterday and today. Repeat Chest x-ray and UA. (3) Acute back pain: Qualifiers: Back pain laterality: bilateral Back pain location: back pain in unspecified location Qualified Code(s): M54.9 - Dorsalgia, unspecified Code(s): M54.9 - Dorsalgia, unspecified Status: Acute Assessment and Plan: presume secondary to above. MRI of cervical, thoracic and lumbar spine revealing spondylosis P.r.n. analgesics and muscle relaxants (4) Abdominal pain: Qualifiers: Abdominal location: generalized Qualified Code(s): R10.84 - Generalized abdominal pain Code(s): R10.9 - Unspecified abdominal pain Status: Acute Assessment and Plan: Patient with abdominal pain that started 06/23/2022. Patient has had regurgitation with his meals and persistent epigastric pain. CT abdomen pelvis revealing hepatic cysts or biliary hematomas Right upper quadrant ultrasound ordered Lipase within normal limits UA without nitrates, leukocytes, and bacteria Preliminary blood cultures no growth today Suspect this is secondary to acute infection as patient has generalized pain on assessment suggesting myalgias. (5) Hepatic cyst: Code(s): K76.89 - Other specified diseases of liver Status: Chronic Assessment and Plan: CT abdomen pelvis revealing innumerable small hepatic cysts or biliary hematomas. Incidental finding. LFTs within normal limits. Plan CODE STATUS: FULL CODE Disposition: from home. No discharge needs identified at this time. Diet: NPO for LP
[2022-07-01 08:44] LABS: Hemoglobin A1C 5.7 % (<5.7)
[2022-07-01] MEDS: PANTOPRAZOLE SODIUM IV 40 MG VIAL IV PUSH ×2 (09:33→20:30)
[2022-07-01] MEDS: cefTRIAXone 2 GM/NS 100 ML 2 GM/100 ML BAG IVPB ×2 (10:07→20:30)
--- NOTE | 2022-07-01 12:27 | WPDNEUROPN ---
Subjective Date/time seen: 07/01/22 12:27 Interval history: 41 years old admitted through the ER with the complaints of generalized pain and with the initial suspicion of meningitis, initial CBC compatible with mild leukocytosis UA mildly abnormal, spinal fluid studies were normal and the CT scan of the head documents old blowout fracture of the medial wall of left orbit. Clinically patient today awake alert follows instructions very well extraocular movements are full and there is no motor deficit treatment will be continued as such till all the cultures are documented negative. Objective Data Vital Signs Vital Signs: Vital Signs - 24 hr 06/30/22 12:45 06/30/22 13:36 06/30/22 16:00 Temperature Pulse Rate 104 H 106 H 106 H Respiratory Rate 24 H 18 Blood Pressure 125/100 H 128/88 Pulse Oximetry 98 98 Oxygen Delivery 06/30/22 13:45 06/30/22 19:50 06/30/22 20:00 Temperature 36.5 C 37.7 C H Pulse Rate 89 105 H Respiratory Rate 16 18 Blood Pressure 121/78 114/74 Pulse Oximetry 98 97 Oxygen Delivery Room Air 06/30/22 20:00 07/01/22 00:00 07/01/22 03:47 Temperature 37.6 C Pulse Rate 111 H 120 H 112 H Respiratory Rate 18 Blood Pressure 134/80 Pulse Oximetry 98 Oxygen Delivery 07/01/22 04:00 06/30/22 22:27 07/01/22 08:00 Temperature Pulse Rate 113 H 109 H Respiratory Rate Blood Pressure Pulse Oximetry 98 Oxygen Delivery Room Air Intake/Output Intake/Output: Intake & Output 06/28/22 06/29/22 06/30/22 07/01/22 23:59 23:59 23:59 23:59 Intake Total 7280 3079 1106 Output Total 600 2225 1200 Balance 6680 854 -94 Meds/Results Medications: Active Medications Generic Name Dose Route Start Last Admin Trade Name Freq PRN Reason Stop Dose Admin Hydrocodone Bitart/Acetaminophen 1 tab 06/29/22 16:34 06/30/22 00:47 Hydrocodone/Acetaminophen (*Crx) 5-325 Mg Tablet PO 1 tab Q6H PRN Administration Pain Rated 4-6 Cyclobenzaprine HCl 10 mg 06/30/22 11:30 06/30/22 21:50 Cyclobenzaprine Hcl 10 Mg Tablet PO 10 mg Q8H PRN Administration Muscle Spasm Hydromorphone HCl 0.5 mg 06/29/22 02:31 06/30/22 18:19 Hydromorphone Hcl Inj (*Crx) 1 Mg/Ml Syr IV PUSH 0.5 mg Q4H PRN Administration Pain Rated 7-10 Lactated Ringer's 1,000 mls @ 50 mls/hr 06/29/22 02:35 06/30/22 11:53 Lr - Lactated Ringers Iv IV CONT 50 mls/hr .Q20H LILLIE Infusion Ceftriaxone Sodium 2 gm in 100 mls @ 200 mls/hr 06/30/22 11:25 07/01/22 10:07 Rocephin 2 Gm/Ns 100 Ml IVPB 200 mls/hr Q12HR LILLIE Administration Acyclovir Sodium 800 mg/ 266 mls @ 266 mls/hr 06/30/22 14:00 07/01/22 06:01 Dextrose IVPB Infused Q8HR LILLIE Infusion Vancomycin HCl 1,750 mg in 500 mls @ 250 mls/hr 06/30/22 22:00 07/01/22 05:01 Vancomycin 1,750 Mg/D5w 500 Ml IVPB 250 mls/hr Q8H LILLIE Administration Ondansetron HCl 4 mg 06/29/22 02:31 Ondansetron Inj 4 Mg/2 Ml Vial IV PUSH Q4H PRN Nausea Pantoprazole Sodium 40 mg 06/30/22 21:00 07/01/22 09:33 Pantoprazole Sodium Iv 40 Mg Vial IV PUSH 40 mg Q12HR LILLIE Administration Promethazine HCl 12.5 mg 06/29/22 02:31 Promethazine Hcl 25 Mg/Ml Ampul IV PUSH Q6H PRN Nausea Radiology Results: ITS Impressions Abdomen/Pelvis CT 06/29/22 06:21 Impression: No acute abnormality. 5 mm left basilar pulmonary nodule. According to Fleischner Society criteria, for a low-risk patient no further follow-up required. For a high-risk patient consider 12 month follow-up CT. Innumerable small hepatic cysts or biliary hamartomas. Chest X-Ray 06/29/22 06:29 Impression: Linear bibasilar scarring or atelectasis, otherwise clear lungs. Cervical Spine MRI 06/29/22 13:09 IMPRESSION: 1. Cervical spondylosis moderate at C5-C6 and otherwise mild. Thoracic Spine MRI 06/29/22 13:23 IMPRESSION: 1. Mild thoracic spondylosis. Lum
--- NOTE | 2022-07-01 14:43 | PC.NURSE ---
Kacy FERREIRA notified of temp 100.6.
[2022-07-01] MEDS: ACETAMINOPHEN 325 MG TABLET 650 MG PO (15:05)
[2022-07-01 15:09] LABS: Rapid Plasma Reagin Non-Reactive (NonReactive)
--- NOTE | 2022-07-01 15:50 | PCCCNOTE ---
On 07/01/22, the student, [Aicha Carroll], provided care and completed [facility] documentation on this patient. I have reviewed the student's documentation and agree with the findings.
[2022-07-01 21:15] LABS: Vancomycin Trough 14.7 ug/mL (10.0-20.0)
[2022-07-02] VITALS (7 sets, daily range): BP systolic 125–130; BP diastolic 74–89; PULSE 94–112; RESP 16–18; TEMP 36.8–38.1; O2SAT 96–99
[2022-07-02] MEDS: LACTATED RINGERS 1,000 ML 50 ML IV CONT (04:29)
[2022-07-02] MEDS: ACYCLOVIR SODIUM IVPB 800 MG in DEXTROSE 5% IN WATER 250 ML 266 MG IVPB (05:04)
[2022-07-02 06:29] LABS: Basophils Absolute Auto 0.1 K/mm3 (0.0-0.1); Basophils Percent Auto 0.4 % (0.2-1.2); Eosinophils Absolute Auto 0.2 K/mm3 (0-0.3); Eosinophils Percent Auto 1.2 % (0-4.4); Hematocrit 34.9 % (42.0-52.0); Hemoglobin 11.6 g/dL (14.0-18.0); Immature Granulocyte Absolute 0.23 K/mm3 (0.00-0.031); Immature Granulocyte Percent A 1.8 % (0-0.5); Lymphocytes Absolute Auto 1.72 K/mm3 (0.9-3.2); Lymphocytes Percent Auto 13.4 % (18.3-44.2); Mean Corpuscular HGB Conc 33.2 g/dl (32-36); Mean Corpuscular Hemoglobin 27.5 pg (26-34); Mean Corpuscular Volume 82.7 fl (80-100); Monocytes Absolute Auto 1.5 K/mm3 (0.1-0.6); Monocytes Percent Auto 11.7 % (2.6-8.5); Neutrophils Absolute Auto 9.2 K/mm3 (1.3-6.7); Neutrophils Percent Auto 71.5 % (45.5-73.1); Platelet Count Result 349 k/mm3 (150-375); Red Blood Count 4.22 M/mm3 (4.6-6.20); Red Cell Distribution Width 13.4 % (11.5-14.5); White Blood Count 12.9 K/mm3 (4.5-10.0)
[2022-07-02 06:37] LABS: Alanine Aminotransferase 131 U/L (6-50); Alkaline Phosphatase 111 U/L (38-126); Anion Gap 7 mmol/L (8-16); Aspartate Amino Transferase 118 U/L (17-59); Bilirubin,Total 0.6 mg/dL (0.2-1.3); Blood Urea Nitrogen 13 mg/dL (9-20); Calcium 7.7 mg/dL (8.4-10.2); Carbon Dioxide 28 mmol/L (22-30); Chloride 97 mmol/L (98-107); Estimated CRCL calculation 97 ml/min; Estimated Glomerular Filt Rate > 60; Glucose 141 mg/dL (65-110); Potassium 3.6 mmol/L (3.4-5.0); Sodium 132 mmol/L (137-145)
[2022-07-02] MEDS: HYDROmorphone HCL INJ (*CRX) 1 MG/ML SYR 0.5 MG IV PUSH ×3 (07:39→20:47)
[2022-07-02] MEDS: PANTOPRAZOLE SODIUM IV 40 MG VIAL IV PUSH ×2 (08:40→20:43)
[2022-07-02] MEDS: cefTRIAXone 2 GM/NS 100 ML 2 GM/100 ML BAG IVPB ×2 (08:42→20:42)
--- NOTE | 2022-07-02 09:24 | P.PNIM_ITS ---
Progress Note: A&P Assessment and Plan (1) Meningitis: Code(s): G03.9 - Meningitis, unspecified Status: Acute Assessment and Plan: patient presented with complaints of acute cervical, thoracic, lumbar back pancho n, left arm and leg numbness and tingling, as well as a severe headaches worse with head turning or position changes. patient had fever of 102 in the ED and positive nuchal rigidity noted on exam. patient appears anxious and has increased pain with leg straightening. * Concern for meningitis (bacterial, viral, aseptic)- continue vancomycin, stopped Zosyn 06/30/22 and Rocephin 2 mg IV q.12 hours and acyclovir 10 milligrams/kilogram IV q.8 hours started. * CT head negative for acute intracranial abnormality * 06/30 lumbar puncture. CSF viral serology pending (lyme, HSV, West Nile, cryptococcus, EBV and VDRL), CSF glucose 80 (high), Gram stain without organisms noted, bacterial culture pending and cytology 75% lymphocytes, 25% monocytes, 1/uL neucleated cells * Consulted Neuro for assistance and evaluation. Appreciate recommendations. * RPR and HIV 4th gen negative * continue analgesics and antipyretics * monitor neuro status closely - photophobia and neuralgia likely secondary to * 07/02 CSF CMV, cryptococcus Ag negative (2) Fever: Qualifiers: Fever type: due to other condition Qualified Code(s): R50.81 - Fever presenting with conditions classified elsewhere Code(s): R50.9 - Fever, unspecified Status: Acute Assessment and Plan: patient presented with complaints of acute cervical, thoracic, lumbar back pain, left arm and leg numbness and tingling, as well as a severe headaches worse with head turning or position changes. patient had fever of 102 in the ED and positive nuchal rigidity noted on exam. patient appears anxious and has increased pain with leg straightening. * Concern for meningitis (bacterial, viral, aseptic)- continue vancomycin, stop Zosyn and changed to 3rd generation cephalosporin Rocephin 2 mg IV q.12 hours add acyclovir 10 milligrams/kilogram IV q.8 hours. * CT head negative for acute intracranial abnormality * Check lumbar puncture and send CSF for viral serology, Gram stain, bacterial culture and cytology * Consulted Neuro for assistance and evaluation. Appreciate recommendations. * Check RPR and HIV 4th gen screening * Trial scheduled acetaminophen 650 mg PO Q6 hours * monitor neuro status closely * 07/01 low grade fever 100F yesterday and today. Repeat Chest x-ray and UA. (3) Acute back pain: Qualifiers: Back pain laterality: bilateral Back pain location: back pain in unspecified location Qualified Code(s): M54.9 - Dorsalgia, unspecified Code(s): M54.9 - Dorsalgia, unspecified Status: Acute Assessment and Plan: presume secondary to above. MRI of cervical, thoracic and lumbar spine revealing spondylosis P.r.n. analgesics and muscle relaxants Appears improving (4) Abdominal pain: Qualifiers: Abdominal location: generalized Qualified Code(s): R10.84 - Generalized abdominal pain Code(s): R10.9 - Unspecified abdominal pain Status: Acute Assessment and Plan: Patient with abdominal pain that started 06/23/2022. Patient has had regurgitation with his meals and persistent epigastric pain. * CT abdomen pelvis revealing hepatic cysts or biliary hematomas * Right upper quadrant ultrasound ordered * Lipase within normal limits * UA without nitrates, leukocytes, and bacteria * Preliminary blood cultures no growth today * Suspect this is secondary to acute infection as patient has gener
--- NOTE | 2022-07-02 09:24 | PM.IMPN ---
Progress Note: A&P Assessment and Plan (1) Meningitis: Code(s): G03.9 - Meningitis, unspecified Status: Acute Assessment and Plan: patient presented with complaints of acute cervical, thoracic, lumbar back pain, left arm and leg numbness and tingling, as well as a severe headaches worse with head turning or position changes. patient had fever of 102 in the ED and positive nuchal rigidity noted on exam. patient appears anxious and has increased pain with leg straightening. Concern for meningitis (bacterial, viral, aseptic)- continue vancomycin, stopped Zosyn 06/30/22 and Rocephin 2 mg IV q.12 hours and acyclovir 10 milligrams/kilogram IV q.[address] head negative for acute intracranial abnormality 06/30 lumbar puncture. CSF viral serology pending (lyme, HSV, West Nile, cryptococcus, EBV and VDRL), CSF glucose 80 (high), Gram stain without organisms noted, bacterial culture pending and cytology 75% lymphocytes, 25% monocytes, 1/uL neucleated cells Consulted Neuro for assistance and evaluation. Appreciate recommendations. RPR and HIV 4th gen negative continue analgesics and antipyretics monitor neuro status closely - photophobia and neuralgia likely secondary to 07/02 CSF CMV, cryptococcus Ag negative (2) Fever: Qualifiers: Fever type: due to other condition Qualified Code(s): R50.81 - Fever presenting with conditions classified elsewhere Code(s): R50.9 - Fever, unspecified Status: Acute Assessment and Plan: patient presented with complaints of acute cervical, thoracic, lumbar back pain, left arm and leg numbness and tingling, as well as a severe headaches worse with head turning or position changes. patient had fever of 102 in the ED and positive nuchal rigidity noted on exam. patient appears anxious and has increased pain with leg straightening. Concern for meningitis (bacterial, viral, aseptic)- continue vancomycin, stop Zosyn and changed to 3rd generation cephalosporin Rocephin 2 mg IV q.12 hours add acyclovir 10 milligrams/kilogram IV q.[address] head negative for acute intracranial abnormality Check lumbar puncture and send CSF for viral serology, Gram stain, bacterial culture and cytology Consulted Neuro for assistance and evaluation. Appreciate recommendations. Check RPR and HIV 4th gen screening Trial scheduled acetaminophen 650 mg PO Q6 hours monitor neuro status closely 07/01 low grade fever 100F yesterday and today. Repeat Chest x-ray and UA. (3) Acute back pain: Qualifiers: Back pain laterality: bilateral Back pain location: back pain in unspecified location Qualified Code(s): M54.9 - Dorsalgia, unspecified Code(s): M54.9 - Dorsalgia, unspecified Status: Acute Assessment and Plan: presume secondary to above. MRI of cervical, thoracic and lumbar spine revealing spondylosis P.r.n. analgesics and muscle relaxants Appears improving (4) Abdominal pain: Qualifiers: Abdominal location: generalized Qualified Code(s): R10.84 - Generalized abdominal pain Code(s): R10.9 - Unspecified abdominal pain Status: Acute Assessment and Plan: Patient with abdominal pain that started 06/23/2022. Patient has had regurgitation with his meals and persistent epigastric pain. CT abdomen pelvis revealing hepatic cysts or biliary hematomas Right upper quadrant ultrasound ordered Lipase within normal limits UA without nitrates, leukocytes, and bacteria Preliminary blood cultures no growth today Suspect this is secondary to acute infection as patient has generalized pain on assessment suggesting myalgias. 07/[address] abdomen & pelvis without evidence of acute intra-abdominal infection (5) Hepatic cyst: Code(s): K76.89 - Other specified diseases of liver Status: Chronic Assessment and Plan: CT abdomen pelvis revealing innumerable small hepatic cysts or biliary gardenia
[2022-07-02] MEDS: ACETAMINOPHEN 325 MG TABLET 650 MG PO ×3 (11:58→23:07)
[2022-07-02] MEDS: ACYCLOVIR SODIUM IVPB 800 MG in DEXTROSE 5% IN WATER 250 ML 250 MG IVPB ×2 (13:45→21:43)
[2022-07-02] MEDS: ARTIFICIAL TEARS OPHTH SOLN 15 ML BOTTLE 1 DROP EACH EYE ×2 (13:46→17:50)
[2022-07-02 14:15] LABS: Cryptococcus Antigen Not Detected (Not Detected); Cryptococcus Specimen Source CSF
[2022-07-02 14:36] LABS: CMV DNA Quant PCR IU/mL Not Detected; Cytomegalovirus DNA Quant PCR Not Detected log IU/mL; Cytomegalovirus DNA Source Serum
--- NOTE | 2022-07-02 16:04 | PCCCNOTE ---
On 07/02/22, the student, [Julia Carroll], provided care and completed [facility] documentation on this patient. I have reviewed the student's documentation and agree with the findings.
[2022-07-02] MEDS: HYDROcodone/acetaminophen (*CRX) 5-325 MG TABLET 1 TAB PO (21:47)
[2022-07-02 22:10] LABS: Vancomycin Trough 13.1 ug/mL (10.0-20.0)
[2022-07-02] MEDS: CYCLOBENZAPRINE HCL 10 MG TABLET PO (23:07)
[2022-07-03] VITALS (7 sets, daily range): BP systolic 121–136; BP diastolic 79–90; PULSE 96–120; RESP 17–20; TEMP 36.4–37.3; O2SAT 94–99
[2022-07-03] MEDS: HYDROmorphone HCL INJ (*CRX) 1 MG/ML SYR 0.5 MG IV PUSH ×4 (03:31→21:20)
[2022-07-03] MEDS: ACYCLOVIR SODIUM IVPB 800 MG in DEXTROSE 5% IN WATER 250 ML 250 MG IVPB ×2 (05:37→13:37)
[2022-07-03] MEDS: HYDROcodone/acetaminophen (*CRX) 5-325 MG TABLET 1 TAB PO ×3 (05:38→18:15)
[2022-07-03 06:04] LABS: Basophils Absolute Auto 0.1 K/mm3 (0.0-0.1); Basophils Percent Auto 0.4 % (0.2-1.2); Eosinophils Absolute Auto 0.2 K/mm3 (0-0.3); Eosinophils Percent Auto 1.2 % (0-4.4); Hematocrit 37.1 % (42.0-52.0); Hemoglobin 12.1 g/dL (14.0-18.0); Immature Granulocyte Absolute 0.25 K/mm3 (0.00-0.031); Immature Granulocyte Percent A 1.9 % (0-0.5); Lymphocytes Percent Auto 10.4 % (18.3-44.2); Mean Corpuscular HGB Conc 32.6 g/dl (32-36); Mean Corpuscular Hemoglobin 27.3 pg (26-34); Mean Corpuscular Volume 83.6 fl (80-100); Mean Platelet Volume 8.9 fl (7.4-10.4); Monocytes Absolute Auto 1.7 K/mm3 (0.1-0.6); Monocytes Percent Auto 12.9 % (2.6-8.5); Neutrophils Absolute Auto 9.8 K/mm3 (1.3-6.7); Neutrophils Percent Auto 73.2 % (45.5-73.1); Platelet Count Result 414 k/mm3 (150-375); Red Blood Count 4.44 M/mm3 (4.6-6.20); Red Cell Distribution Width 13.6 % (11.5-14.5); White Blood Count 13.5 K/mm3 (4.5-10.0)
[2022-07-03 06:20] LABS: Alanine Aminotransferase 94 U/L (6-50); Albumin Level 3.2 g/dL (3.5-5.1); Alkaline Phosphatase 110 U/L (38-126); Anion Gap 9 mmol/L (8-16); Aspartate Amino Transferase 44 U/L (17-59); Bilirubin,Total 0.9 mg/dL (0.2-1.3); Blood Urea Nitrogen 12 mg/dL (9-20); Calcium 8.3 mg/dL (8.4-10.2); Carbon Dioxide 27 mmol/L (22-30); Chloride 96 mmol/L (98-107); Estimated CRCL calculation 110 ml/min; Estimated Glomerular Filt Rate > 60; Glucose 133 mg/dL (65-110); Potassium 3.9 mmol/L (3.4-5.0); Sodium 132 mmol/L (137-145)
[2022-07-03 06:52] LABS: Platelet Estimate Increased (Adequate)
[2022-07-03 06:53] LABS: Burr Cells 2+ (NORMAL); Schistocytes None Seen (NORMAL)
[2022-07-03] MEDS: PANTOPRAZOLE SODIUM IV 40 MG VIAL IV PUSH (08:24)
[2022-07-03] MEDS: ARTIFICIAL TEARS OPHTH SOLN 15 ML BOTTLE 1 DROP EACH EYE ×2 (08:24→21:11)
[2022-07-03] MEDS: ONDANSETRON INJ 4 MG/2 ML VIAL IV PUSH (08:25)
--- NOTE | 2022-07-03 08:38 | PC.NURSE ---
Patient does not want bed alarm despite weakness and use of pain medications during hospital stay. Educated patient to please call when ambulating. Patient agreeable to call when ambulating, but is refusing bed alarm.
[2022-07-03] MEDS: cefTRIAXone 2 GM/NS 100 ML 2 GM/100 ML BAG IVPB ×2 (11:06→21:12)
[2022-07-03] MEDS: CYCLOBENZAPRINE HCL 10 MG TABLET PO (11:07)
--- NOTE | 2022-07-03 14:01 | PM.IMPN ---
Progress Note: A&P Assessment and Plan (1) Meningitis: Code(s): G03.9 - Meningitis, unspecified Status: Acute Assessment and Plan: patient presented with complaints of acute cervical, thoracic, lumbar back pain, left arm and leg numbness and tingling, as well as a severe headaches worse with head turning or position changes. patient had fever of 102 in the ED and positive nuchal rigidity noted on exam. patient appears anxious and has increased pain with leg straightening. Concern for meningitis (bacterial, viral, aseptic)- continue vancomycin, stopped Zosyn 06/30/22 and Rocephin 2 mg IV q.12 hours and acyclovir 10 milligrams/kilogram IV q.[address] head negative for acute intracranial abnormality 06/30 lumbar puncture. CSF viral serology pending (lyme, HSV, West Nile, cryptococcus, EBV and VDRL), CSF glucose 80 (high), Gram stain without organisms noted, bacterial culture pending and cytology 75% lymphocytes, 25% monocytes, 1/uL neucleated cells Consulted Neuro for assistance and evaluation. Appreciate recommendations. RPR and HIV 4th gen negative continue analgesics and antipyretics monitor neuro status closely - photophobia and neuralgia likely secondary to 07/02 CSF CMV, cryptococcus Ag negative 07/03 CSF lyme, HSV, west nile, EBV, VDRL and VSV pending (2) Fever: Qualifiers: Fever type: due to other condition Qualified Code(s): R50.81 - Fever presenting with conditions classified elsewhere Code(s): R50.9 - Fever, unspecified Status: Acute Assessment and Plan: patient presented with complaints of acute cervical, thoracic, lumbar back pain, left arm and leg numbness and tingling, as well as a severe headaches worse with head turning or position changes. patient had fever of 102 in the ED and positive nuchal rigidity noted on exam. patient appears anxious and has increased pain with leg straightening. Concern for meningitis (bacterial, viral, aseptic)- continue vancomycin, stop Zosyn and changed to 3rd generation cephalosporin Rocephin 2 mg IV q.12 hours add acyclovir 10 milligrams/kilogram IV q.[address] head negative for acute intracranial abnormality Check lumbar puncture and send CSF for viral serology, Gram stain, bacterial culture and cytology Consulted Neuro for assistance and evaluation. Appreciate recommendations. Check RPR and HIV 4th gen screening Trial scheduled acetaminophen 650 mg PO Q6 hours monitor neuro status closely 07/01 low grade fever 100F yesterday and today. Repeat Chest x-ray and UA negative for acute infection. 07/03 continue acetaminophen scheduled q6 hours x 24 hours more then reassess if still with low-grade temps. (3) Acute back pain: Qualifiers: Back pain laterality: bilateral Back pain location: back pain in unspecified location Qualified Code(s): M54.9 - Dorsalgia, unspecified Code(s): M54.9 - Dorsalgia, unspecified Status: Acute Assessment and Plan: presume secondary to above. MRI of cervical, thoracic and lumbar spine revealing spondylosis P.r.n. analgesics and muscle relaxants Appears improving Right neck pain improved with massage per patient. Add Kpad (4) Abdominal pain: Qualifiers: Abdominal location: generalized Qualified Code(s): R10.84 - Generalized abdominal pain Code(s): R10.9 - Unspecified abdominal pain Status: Acute Assessment and Plan: Patient with abdominal pain that started 06/23/2022. Patient has had regurgitation with his meals and persistent epigastric pain. CT abdomen pelvis revealing hepatic cysts or biliary hematomas Right upper quadrant ultrasound ordered Lipase within normal limits UA without nitrates, leukocytes, and bacteria Preliminary blood cultures no growth today Suspect this is secondary to acute infection as patient has generalized pain on assessment suggesting myalgias. 07/[address] abdomen & pelvis wit
[2022-07-03] MEDS: DEXAMETHASONE SOD PHOS INJ 4 MG/ML VIAL IV PUSH (18:53)
[2022-07-03 19:54] LABS: Herpes Simplex Type 1 DNA PCR Not Detected (Not Detected); Herpes Simplex Type 2 DNA PCR Not Detected (Not Detected)
[2022-07-03] MEDS: ACYCLOVIR SODIUM IVPB 800 MG in DEXTROSE 5% IN WATER 250 ML 266 MG IVPB (21:11)
[2022-07-03] MEDS: BENZOCAINE/MENTHOL (*BKC) 18 EA LOZENGE 1 LOZENGE PO (22:36)
[2022-07-03] MEDS: ACETAMINOPHEN 325 MG TABLET 650 MG PO (23:22)
[2022-07-04 00:28] LABS: Vancomycin Trough 12.8 ug/mL (10.0-20.0)
[2022-07-04 02:34] LABS: Epstein Barr Virus DNA PCR Not Detected (Not Detected); Source Epstein Barr Virus CSF
[2022-07-04 05:24] LABS: Basophils Percent Auto 0.2 % (0.2-1.2); Eosinophils Percent Auto 0.1 % (0-4.4); Hematocrit 37.3 % (42.0-52.0); Hemoglobin 12.2 g/dL (14.0-18.0); Immature Granulocyte Absolute 0.29 K/mm3 (0.00-0.031); Immature Granulocyte Percent A 1.7 % (0-0.5); Lymphocytes Absolute Auto 0.91 K/mm3 (0.9-3.2); Lymphocytes Percent Auto 5.3 % (18.3-44.2); Mean Corpuscular HGB Conc 32.7 g/dl (32-36); Mean Corpuscular Hemoglobin 27.2 pg (26-34); Mean Corpuscular Volume 83.3 fl (80-100); Monocytes Absolute Auto 1.3 K/mm3 (0.1-0.6); Monocytes Percent Auto 7.3 % (2.6-8.5); Neutrophils Absolute Auto 14.5 K/mm3 (1.3-6.7); Neutrophils Percent Auto 85.4 % (45.5-73.1); Platelet Count Result 470 k/mm3 (150-375); Red Blood Count 4.48 M/mm3 (4.6-6.20); Red Cell Distribution Width 13.7 % (11.5-14.5)
[2022-07-04 05:37] LABS: Alanine Aminotransferase 60 U/L (6-50); Albumin Level 3.3 g/dL (3.5-5.1); Alkaline Phosphatase 100 U/L (38-126); Anion Gap 9 mmol/L (8-16); Aspartate Amino Transferase 26 U/L (17-59); Bilirubin,Total 0.7 mg/dL (0.2-1.3); Blood Urea Nitrogen 13 mg/dL (9-20); Calcium 8.4 mg/dL (8.4-10.2); Carbon Dioxide 28 mmol/L (22-30); Chloride 95 mmol/L (98-107); Estimated CRCL calculation 87 ml/min; Estimated Glomerular Filt Rate > 60; Glucose 154 mg/dL (65-110); Potassium 4.3 mmol/L (3.4-5.0); Sodium 132 mmol/L (137-145)
[2022-07-04] MEDS: ACETAMINOPHEN 325 MG TABLET 650 MG PO ×2 (05:41→12:28)
[2022-07-04] MEDS: ACYCLOVIR SODIUM IVPB 800 MG in DEXTROSE 5% IN WATER 250 ML 266 MG IVPB ×2 (05:42→23:43)
[2022-07-04 06:00] VITALS: BP 139/85; PULSE 93; RESP 20; TEMP 37.2; O2SAT 96
[2022-07-04] MEDS: cefTRIAXone 2 GM/NS 100 ML 2 GM/100 ML BAG IVPB ×2 (08:26→20:00)
[2022-07-04] MEDS: PANTOPRAZOLE 40 MG TABLET PO (08:27)
[2022-07-04] MEDS: ARTIFICIAL TEARS OPHTH SOLN 15 ML BOTTLE 1 DROP EACH EYE (08:27)
[2022-07-04] MEDS: DEXAMETHASONE 4 MG TABLET PO (10:47)
--- NOTE | 2022-07-04 12:19 | P.PNIM_ITS ---
Progress Note: A&P Assessment and Plan (1) Meningitis: Code(s): G03.9 - Meningitis, unspecified Status: Acute Assessment and Plan: patient presented with complaints of acute cervical, thoracic, lumbar back pancho n, left arm and leg numbness and tingling, as well as a severe headaches worse with head turning or position changes. patient had fever of 102 in the ED and positive nuchal rigidity noted on exam. patient appears anxious and has increased pain with leg straightening. * Concern for meningitis (bacterial, viral, aseptic)- continue vancomycin, stopped Zosyn 06/30/22 and Rocephin 2 mg IV q.12 hours and acyclovir 10 milligrams/kilogram IV q.8 hours started. * CT head negative for acute intracranial abnormality * 06/30 lumbar puncture. CSF viral serology pending (lyme, HSV, West Nile, cryptococcus, EBV and VDRL), CSF glucose 80 (high), Gram stain without organisms noted, bacterial culture pending and cytology 75% lymphocytes, 25% monocytes, 1/uL neucleated cells * Consulted Neuro for assistance and evaluation. Appreciate recommendations. * RPR and HIV 4th gen negative * continue analgesics and antipyretics * monitor neuro status closely - photophobia and neuralgia likely secondary to * 07/02 CSF CMV, cryptococcus Ag negative * 07/04 CSF lyme IgM and IgG bands pending * CSF HSV 1 & 2 negative * CSF west nile pending, * CSF EBV negative, * CSF coccidioides, VDRL and VSV pending (2) Fever: Qualifiers: Fever type: due to other condition Qualified Code(s): R50.81 - Fever presenting with conditions classified elsewhere Code(s): R50.9 - Fever, unspecified Status: Acute Assessment and Plan: patient presented with complaints of acute cervical, thoracic, lumbar back pain, left arm and leg numbness and tingling, as well as a severe headaches worse with head turning or position changes. patient had fever of 102 in the ED and positive nuchal rigidity noted on exam. patient appears anxious and has increased pain with leg straightening. * Concern for meningitis (bacterial, viral, aseptic)- continue vancomycin, stop Zosyn and changed to 3rd generation cephalosporin Rocephin 2 mg IV q.12 hours add acyclovir 10 milligrams/kilogram IV q.8 hours. * CT head negative for acute intracranial abnormality * Lumbar puncture and CSF analysis as above. * Consulted Neuro for assistance and evaluation. Appreciate recommendations. * Trialed scheduled acetaminophen 650 mg PO Q6 hours 06/03/22 to 07/02/22. Repeat Chest x-ray and UA negative for acute infection. * Afebrile x 48 hours. Off scheduled acetaminophen currently. (3) Acute back pain: Qualifiers: Back pain laterality: bilateral Back pain location: back pain in unspecified location Qualified Code(s): M54.9 - Dorsalgia, unspecified Code(s): M54.9 - Dorsalgia, unspecified Status: Acute Assessment and Plan: presume secondary to above. * MRI of cervical, thoracic and lumbar spine revealing spondylosis * P.r.n. analgesics and muscle relaxants and Kpad * Improving (4) Abdominal pain: Qualifiers: Abdominal location: generalized Qualified Code(s): R10.84 - Generalized abdominal pain Code(s): R10.9 - Unspecified abdominal pain Status: Acute Assessment and Plan: Patient with abdominal pain that started 06/23/2022. Patient has had regurgitation with his meals and persistent epigastric pain. * CT abdomen pelvis revealing hepatic cysts or biliary hematomas * Right upper quadrant ultrasound ordered * Lipase within normal limits * UA without nitrates, leukocytes, and bacteria *
--- NOTE | 2022-07-04 12:19 | PM.IMPN ---
Progress Note: A&P Assessment and Plan (1) Meningitis: Code(s): G03.9 - Meningitis, unspecified Status: Acute Assessment and Plan: patient presented with complaints of acute cervical, thoracic, lumbar back pain, left arm and leg numbness and tingling, as well as a severe headaches worse with head turning or position changes. patient had fever of 102 in the ED and positive nuchal rigidity noted on exam. patient appears anxious and has increased pain with leg straightening. Concern for meningitis (bacterial, viral, aseptic)- continue vancomycin, stopped Zosyn 06/30/22 and Rocephin 2 mg IV q.12 hours and acyclovir 10 milligrams/kilogram IV q.[address] head negative for acute intracranial abnormality 06/30 lumbar puncture. CSF viral serology pending (lyme, HSV, West Nile, cryptococcus, EBV and VDRL), CSF glucose 80 (high), Gram stain without organisms noted, bacterial culture pending and cytology 75% lymphocytes, 25% monocytes, 1/uL neucleated cells Consulted Neuro for assistance and evaluation. Appreciate recommendations. RPR and HIV 4th gen negative continue analgesics and antipyretics monitor neuro status closely - photophobia and neuralgia likely secondary to 07/02 CSF CMV, cryptococcus Ag negative 07/04 CSF lyme IgM and IgG bands pending CSF HSV 1 & 2 negative CSF west nile pending, CSF EBV negative, CSF coccidioides, VDRL and VSV pending (2) Fever: Qualifiers: Fever type: due to other condition Qualified Code(s): R50.81 - Fever presenting with conditions classified elsewhere Code(s): R50.9 - Fever, unspecified Status: Acute Assessment and Plan: patient presented with complaints of acute cervical, thoracic, lumbar back pain, left arm and leg numbness and tingling, as well as a severe headaches worse with head turning or position changes. patient had fever of 102 in the ED and positive nuchal rigidity noted on exam. patient appears anxious and has increased pain with leg straightening. Concern for meningitis (bacterial, viral, aseptic)- continue vancomycin, stop Zosyn and changed to 3rd generation cephalosporin Rocephin 2 mg IV q.12 hours add acyclovir 10 milligrams/kilogram IV q.[address] head negative for acute intracranial abnormality Lumbar puncture and CSF analysis as above. Consulted Neuro for assistance and evaluation. Appreciate recommendations. Trialed scheduled acetaminophen 650 mg PO Q6 hours 06/03/22 to 07/02/22. Repeat Chest x-ray and UA negative for acute infection. Afebrile x 48 hours. Off scheduled acetaminophen currently. (3) Acute back pain: Qualifiers: Back pain laterality: bilateral Back pain location: back pain in unspecified location Qualified Code(s): M54.9 - Dorsalgia, unspecified Code(s): M54.9 - Dorsalgia, unspecified Status: Acute Assessment and Plan: presume secondary to above. MRI of cervical, thoracic and lumbar spine revealing spondylosis P.r.n. analgesics and muscle relaxants and Kpad Improving (4) Abdominal pain: Qualifiers: Abdominal location: generalized Qualified Code(s): R10.84 - Generalized abdominal pain Code(s): R10.9 - Unspecified abdominal pain Status: Acute Assessment and Plan: Patient with abdominal pain that started 06/23/2022. Patient has had regurgitation with his meals and persistent epigastric pain. CT abdomen pelvis revealing hepatic cysts or biliary hematomas Right upper quadrant ultrasound ordered Lipase within normal limits UA without nitrates, leukocytes, and bacteria Preliminary blood cultures no growth today Suspect this is secondary to acute infection as patient has generalized pain on assessment suggesting myalgias. 07/[address] abdomen & pelvis without evidence of acute intra-abdominal infection Impoving. (5) Hepatic cyst: Code(s): K76.89 - Other specified diseases of liver Status: Chr
[2022-07-04 13:14] LABS: Lyme Disease Ab (IgM), Blot Negative (Negative); Lyme Disease Ab(IgG), Blot Negative (Negative)
[2022-07-04 14:00] VITALS: BP 116/84; PULSE 100; RESP 18; TEMP 36.2; O2SAT 99
[2022-07-04 14:46] LABS: Vancomycin Peak 40.2 ug/mL (20-40)
[2022-07-04] MEDS: ACYCLOVIR SODIUM IVPB 800 MG in DEXTROSE 5% IN WATER 250 ML 250 MG IVPB (14:49)
[2022-07-04 17:39] LABS: Vancomycin Peak 18.4 ug/mL (20-40)
[2022-07-04 19:09] LABS: Vancomycin Trough 18.7 ug/mL (10.0-20.0)
[2022-07-04] MEDS: BENZOCAINE/MENTHOL (*BKC) 18 EA LOZENGE 1 LOZENGE PO (20:04)
[2022-07-04 22:00] VITALS: BP 136/79; PULSE 95; RESP 20; TEMP 37.1; O2SAT 95
[2022-07-05 05:19] VITALS: BP 131/78; PULSE 97; RESP 20; TEMP 36.9; O2SAT 97
[2022-07-05 06:06] LABS: Basophils Percent Auto 0.2 % (0.2-1.2); Eosinophils Percent Auto 0.1 % (0-4.4); Hematocrit 34.6 % (42.0-52.0); Hemoglobin 11.3 g/dL (14.0-18.0); Immature Granulocyte Absolute 0.34 K/mm3 (0.00-0.031); Immature Granulocyte Percent A 1.8 % (0-0.5); Lymphocytes Absolute Auto 1.29 K/mm3 (0.9-3.2); Mean Corpuscular HGB Conc 32.7 g/dl (32-36); Mean Corpuscular Hemoglobin 27.9 pg (26-34); Mean Corpuscular Volume 85.4 fl (80-100); Mean Platelet Volume 9.1 fl (7.4-10.4); Monocytes Absolute Auto 1.2 K/mm3 (0.1-0.6); Monocytes Percent Auto 6.3 % (2.6-8.5); Neutrophils Absolute Auto 15.7 K/mm3 (1.3-6.7); Neutrophils Percent Auto 84.6 % (45.5-73.1); Platelet Count Result 496 k/mm3 (150-375); Red Blood Count 4.05 M/mm3 (4.6-6.20); White Blood Count 18.5 K/mm3 (4.5-10.0)
[2022-07-05] MEDS: ACYCLOVIR SODIUM IVPB 800 MG in DEXTROSE 5% IN WATER 250 ML 266 MG IVPB ×2 (06:10→14:00)
[2022-07-05 06:22] LABS: Alanine Aminotransferase 101 U/L (6-50); Alkaline Phosphatase 122 U/L (38-126); Anion Gap 6 mmol/L (8-16); Aspartate Amino Transferase 77 U/L (17-59); Bilirubin,Total 0.4 mg/dL (0.2-1.3); Blood Urea Nitrogen 18 mg/dL (9-20); Calcium 7.6 mg/dL (8.4-10.2); Carbon Dioxide 29 mmol/L (22-30); Chloride 98 mmol/L (98-107); Estimated CRCL calculation 87 ml/min; Estimated Glomerular Filt Rate > 60; Glucose 153 mg/dL (65-110); Sodium 133 mmol/L (137-145)
[2022-07-05] MEDS: cefTRIAXone 2 GM/NS 100 ML 2 GM/100 ML BAG IVPB (08:54)
[2022-07-05] MEDS: DEXAMETHASONE 4 MG TABLET PO (08:54)
[2022-07-05] MEDS: ARTIFICIAL TEARS OPHTH SOLN 15 ML BOTTLE 1 DROP EACH EYE ×2 (08:54→13:40)
[2022-07-05] MEDS: PANTOPRAZOLE 40 MG TABLET PO (08:55)
[2022-07-05 12:10] LABS: VDRL Quantitative CSF Nonreactive (Nonreactive)
[2022-07-05 14:09] VITALS: BP 142/85; PULSE 87; RESP 18; TEMP 37.2; O2SAT 97
--- NOTE | 2022-07-05 14:39 | P.DS_ITS ---
DS: Admitting Diagnosis Discharge Date 07/05/2022 Admitting Diagnosis Unspecified abdominal pain Fever, unspecified Other specified diseases of liver? Dorsalgia, unspecified DS: Discharge Diagnosis Discharge Diagnosis (1) Meningitis: Code(s): G03.9 - Meningitis, unspecified Status: Acute Assessment and Plan: patient presented with complaints of acute cervical, thoracic, lumbar back pain, left arm and leg numbness and tingling, as well as a severe headaches worse with head turning or position changes. patient had fever of 102 in the ED and positive nuchal rigidity noted on exam. patient anxiety and with increased pain with leg straightening. * Concern for meningitis (bacterial, viral, aseptic)- continue vancomycin, stopped Zosyn 06/30/22 and Rocephin 2 mg IV q.12 hours and acyclovir 10 milligrams/kilogram IV q.8 hours started. * CT head negative for acute intracranial abnormality * 06/30 lumbar puncture. CSF viral serology requested (lyme, HSV, West Nile, cryptococcus, EBV and VDRL), * CSF glucose 80 (high), * Gram stain without organisms noted, bacterial and fungal cultures negative * cytology 75% lymphocytes, 25% monocytes, 1/uL neucleated cells * Consulted Neuro for assistance. * RPR and HIV 4th gen negative * Supportive care with analgesics and antipyretics * 07/02 CSF CMV, cryptococcus Ag negative * 07/04 CSF lyme IgM and IgG bands pending, IgG 23 & 39 Lyme reactive * CSF HSV 1 & 2 negative * CSF west nile negative, * CSF EBV negative, * CSF coccidioides pending, * CSF VDRL negative * VSV pending * Dexamethasone 4 mg PO daily initiated 07/03 due to persistent paresthesia left arm, LÓPEZ and sore throat. Symptoms resolved after initiated. Continue x additional 5 days. * Discussed with neurology. 07/05 transitioned to oral doxycyclne 100 mg BID x 8 days (14 days total abx) and acyclovir 800 mg 5 times daily x8 days (14 days total) for possible lyme versus VZV meningitis. (2) Fever: Qualifiers: Fever type: due to other condition Qualified Code(s): R50.81 - Fever presenting with conditions classified elsewhere Code(s): R50.9 - Fever, unspecified Status: Acute Assessment and Plan: patient presented with complaints of acute cervical, thoracic, lumbar back pain, left arm and leg numbness and tingling, as well as a severe headaches worse with head turning or position changes. patient had fever of 102 in the ED and positive nuchal rigidity noted on exam. patient appears anxious and has increased pain with leg straightening. * Concern for meningitis (bacterial, viral, aseptic)- continue vancomycin, stop Zosyn and changed to 3rd generation cephalosporin Rocephin 2 mg IV q.12 hours add acyclovir 10 milligrams/kilogram IV q.8 hours. * CT head negative for acute intracranial abnormality * Lumbar puncture and CSF analysis as above. * Trialed scheduled acetaminophen 650 mg PO Q6 hours 06/03/22 to 07/02/22. Repeat Chest x-ray and UA negative for acute infection. * CT abdomen and pelvis negative for acute intra-abdominal infection or pathology * Afebrile x 48 hours. Off scheduled acetaminophen since 07/03/22. (3) Acute back pain: Qualifiers: Back pain laterality: bilateral Back pain location: back pain in unspecified location Qualified Code(s): M54.9 - Dorsalgia, unspecified Code(s): M54.9 - Dorsalgia, unspecified Status: Acute Assessment and Plan: presume secondary to above. * MRI of cervical, thoracic and lumbar spine revealing spondylosis * P.r.n. analgesics and muscle relaxants and Kpad * Improved (4
--- NOTE | 2022-07-05 14:39 | PM.DS ---
DS: Admitting Diagnosis Discharge Date 07/05/2022 Admitting Diagnosis Unspecified abdominal pain Fever, unspecified Other specified diseases of liver? Dorsalgia, unspecified DS: Discharge Diagnosis Discharge Diagnosis (1) Meningitis: Code(s): G03.9 - Meningitis, unspecified Status: Acute Assessment and Plan: patient presented with complaints of acute cervical, thoracic, lumbar back pain, left arm and leg numbness and tingling, as well as a severe headaches worse with head turning or position changes. patient had fever of 102 in the ED and positive nuchal rigidity noted on exam. patient anxiety and with increased pain with leg straightening. Concern for meningitis (bacterial, viral, aseptic)- continue vancomycin, stopped Zosyn 06/30/22 and Rocephin 2 mg IV q.12 hours and acyclovir 10 milligrams/kilogram IV q.[address] head negative for acute intracranial abnormality 06/30 lumbar puncture. CSF viral serology requested (lyme, HSV, West Nile, cryptococcus, EBV and VDRL), CSF glucose 80 (high), Gram stain without organisms noted, bacterial and fungal cultures negative cytology 75% lymphocytes, 25% monocytes, 1/uL neucleated cells Consulted Neuro for assistance. RPR and HIV 4th gen negative Supportive care with analgesics and antipyretics 07/02 CSF CMV, cryptococcus Ag negative 07/04 CSF lyme IgM and IgG bands pending, IgG 23 & 39 Lyme reactive CSF HSV 1 & 2 negative CSF west nile negative, CSF EBV negative, CSF coccidioides pending, CSF VDRL negative VSV pending Dexamethasone 4 mg PO daily initiated 07/03 due to persistent paresthesia left arm, LÓPEZ and sore throat. Symptoms resolved after initiated. Continue x additional 5 days. Discussed with neurology. 07/05 transitioned to oral doxycyclne 100 mg BID x 8 days (14 days total abx) and acyclovir 800 mg 5 times daily x8 days (14 days total) for possible lyme versus VZV meningitis. (2) Fever: Qualifiers: Fever type: due to other condition Qualified Code(s): R50.81 - Fever presenting with conditions classified elsewhere Code(s): R50.9 - Fever, unspecified Status: Acute Assessment and Plan: patient presented with complaints of acute cervical, thoracic, lumbar back pain, left arm and leg numbness and tingling, as well as a severe headaches worse with head turning or position changes. patient had fever of 102 in the ED and positive nuchal rigidity noted on exam. patient appears anxious and has increased pain with leg straightening. Concern for meningitis (bacterial, viral, aseptic)- continue vancomycin, stop Zosyn and changed to 3rd generation cephalosporin Rocephin 2 mg IV q.12 hours add acyclovir 10 milligrams/kilogram IV q.[address] head negative for acute intracranial abnormality Lumbar puncture and CSF analysis as above. Trialed scheduled acetaminophen 650 mg PO Q6 hours 06/03/22 to 07/02/22. Repeat Chest x-ray and UA negative for acute infection. CT abdomen and pelvis negative for acute intra-abdominal infection or pathology Afebrile x 48 hours. Off scheduled acetaminophen since 07/03/22. (3) Acute back pain: Qualifiers: Back pain laterality: bilateral Back pain location: back pain in unspecified location Qualified Code(s): M54.9 - Dorsalgia, unspecified Code(s): M54.9 - Dorsalgia, unspecified Status: Acute Assessment and Plan: presume secondary to above. MRI of cervical, thoracic and lumbar spine revealing spondylosis P.r.n. analgesics and muscle relaxants and Kpad Improved (4) Abdominal pain: Qualifiers: Abdominal location: generalized Qualified Code(s): R10.84 - Generalized abdominal pain Code(s): R10.9 - Unspecified abdominal pain Status: Acute Assessment and Plan: Patient with abdominal pain that started 06/23/2022. Patient has had regurgitation with his meals and persistent epigastric pain. CT abdomen pelvis re
[2022-07-05 14:52] LABS: West Nile Virus, IgM <0.90 index (<0.90)
[2022-07-05 19:06] LABS: Varicella IgM Antibody <=0.90 (<=0.90)
--- NOTE | 2022-07-08 02:37 | ED.GENADULT ---
HPI - General Adult General Chief complaint: Unspecified Stated complaint: pain all over Time Seen by Provider: 06/28/22 22:54 Related Data Allergies Allergy/AdvReac Type Severity Reaction Status Date / Time No Known Allergies Allergy Verified 06/29/22 11:24 [facility] Social History Social History (Updated 06/29/22 @ 16:30 by Zonia Prince PA-C) Social History: Patient lives with his 2 brothers and a home. 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 Patient denies tobacco use and drug use. He admits to occasional drinking on the holidays. Smoking status: Never smoker Alcohol intake: never Substance use: never Substance use type: does not use Lack of Transportation: No Lack of Food: Never True Current Housing: I Have Housing Concerned About Future Housing: No Difficulty Paying Gas/Electric Bills: No Difficulty Paying for Meds: No Currently Unemployed: No Education: High School Diploma/GED Difficulty w/ Childcare or Family Care: No Spiritual care concerns: No Course Vital Signs Vital signs: Vital Signs Temperature 100.2 F H 06/28/22 19:20 Pulse Rate 120 H 06/28/22 19:20 Respiratory Rate 18 06/28/22 19:20 Blood Pressure 136/92 H 06/28/22 19:20 Pulse Oximetry 98 06/28/22 19:20 Temperature 98.9 F 07/05/22 14:09 Pulse Rate 87 07/05/22 14:09 Respiratory Rate 18 07/05/22 14:09 Blood Pressure 142/85 H 07/05/22 14:09 Pulse Oximetry 97 07/05/22 14:09 Oxygen Delivery Room Air 07/05/22 08:55 Medical Decision Making Vital Signs Vital Signs: Vital Signs Temperature 100.2 F H 06/28/22 19:20 Pulse Rate 120 H 06/28/22 19:20 Respiratory Rate 18 06/28/22 19:20 Blood Pressure 136/92 H 06/28/22 19:20 Pulse Oximetry 98 06/28/22 19:20 Temperature 98.9 F 07/05/22 14:09 Pulse Rate 87 07/05/22 14:09 Respiratory Rate 18 07/05/22 14:09 Blood Pressure 142/85 H 07/05/22 14:09 Pulse Oximetry 97 07/05/22 14:09 Oxygen Delivery Room Air 07/05/22 08:55 Lab Data 07/05/22 05:17 07/05/22 05:17 Labs: Lab Results 06/28/22 06/28/22 06/28/22 Range/Units 23:24 23:24 23:24 WBC 13.1 H (4.5-10.0) K/mm3 RBC 4.93 (4.6-6.20) M/mm3 Hgb 13.8 L (14.0-18.0) g/dL Hct 42.0 (42.0-52.0) % MCV 85.2 (80-100) fl MCH 28.0 (26-34) pg MCHC 32.9 (32-36) g/dl RDW 13.2 (11.5-14.5) % Plt Count 293 (150-375) k/mm3 MPV 9.1 (7.4-10.4) fl Immature Gran % (Auto) 0.4 (0-0.5) % Neut % (Auto) 80.7 H (45.5-73.1) % Lymph % (Auto) 5.5 L (18.3-44.2) % [place] % (Auto) 13.2 H (2.6-8.5) % Eos % (Auto) 0.0 (0-4.4) % Baso % (Auto) 0.2 (0.2-1.2) % Lymph # (Auto) 0.72 L (0.9-3.2) K/mm3 [place] # (Auto) 1.7 H (0.1-0.6) K/mm3 Eos # (Auto) 0.0 (0-0.3) K/mm3 Baso # (Auto) 0.0 (0.0-0.1) K/mm3 Abs Immat Gran (auto) 0.05 H (0.00-0.031) K/mm3 Absolute Neuts (auto) 10.6 H (1.3-6.7) K/mm3 Absolute Nucleated RBC 0.0 (0.0-0.012) K/mm3 Nucleated RBC % 0.0 (0.0-0.2) % ESR (0-20) mm/hr PT 15.7 H (11.1-14.7) Seconds INR 1.3 APTT 26.9 (22.3-36.8) SECONDS Sodium 133 L (137-145) mmol/L Potassium 4.0 (3.4-5.0) mmol/L Chloride 95 L (98-107) mmol/L Carbon Dioxide 30 (22-30) mmol/L Anion Gap 8 (8-16) mmol/L BUN 20 (9-20) mg/dL Creatinine 1.00 (0.7-1.3) mg/dL Estim Creat Clear Calc 79 ml/min Estimated GFR > 60 (59 - ) Glucose 139 H (65-110) mg/dL Lactic Acid (0.7-2.0) mmol/L Calcium 8.7 (8.4-10.2) mg/dL Magnesium 2.5 H (1.6-2.3) mg/dL Total Bilirubin 0.8 (0.2-1.3) mg/dL AST 23 (17-59) U/L ALT 30 (6-50) U/L Alkaline Phosphatase 99 (38-126) U/L C-Reactive Protein (<1.0) mg/dL Total Protein 8.0 (6.3-8.2) g/dL Albumin 4.1 (3.5-5.1) g/dL Lipase 29 (23-300) U/L Procalcitonin ng/mL Urine Color (Yellow)
[2022-07-11 10:18] LABS: Coccidioides Ab to F Ag (IgG) NEGATIVE; Coccidioides Ab to TP Ag (IgM) NEGATIVE
== END 2022-07-05 17:00 | disposition home or self-care (01) | DRG 76 ==
LOC: ANHED 06-29 03:03 → ANH3MEDSUR 06-29 09:24 → ANH2MED 06-29 11:25
PROVIDERS: Internal Medicine Critical Care Medicine; Physician Assistant; Admitting Provider Internal Medicine; Emergency Provider Emergency Medicine; PCP Family Medicine; Visit Provider Nurse Practitioner Family
DX: A87.9 Viral meningitis, unspecified (principal); G04.81 Other encephalitis and encephalomyelitis; H53.143 Visual discomfort, bilateral; J02.9 Acute pharyngitis, unspecified; K76.89 Other specified diseases of liver; K59.00 Constipation, unspecified; M47.812 Spondylosis without myelopathy or radiculopathy, cervical region; M47.814 Spondylosis without myelopathy or radiculopathy, thoracic region; M47.816 Spondylosis without myelopathy or radiculopathy, lumbar region; M79.2 Neuralgia and neuritis, unspecified; R20.2 Paresthesia of skin; Z20.822 Contact with and (suspected) exposure to COVID-19; Z28.21 Immunization not carried out because of patient refusal
CPT/HCPCS: 36415; 62328; 70450; 71045; 71046; 72156; 72157; 72158; 74177; 76705; 80053; 80202; 81001; 82565; 82945; 83036; 83605; 83690; 83735; 84145; 84157; 85025; 85610; 85652; 85730; 86140; 86403; 86592; 86617; 86635; 86703; 86787; 86788; 86850; 86900; 86901; 87015; 87040; 87070; 87102; 87116; 87206; 87497; 87529; 87636; 87798; 88108; 89051; 93005; 96361; 96365; 96366; 96367; 96375; 96376; 99285; A9270; A9577; C9113; G0378; G0432; J0131; J0133; J0696; J1100; J1170; J2405; J2543; J3370; J7030; J7060; J7120; J8540; Q9967